=== PATIENT | male | born 1975 | race Caucasian/White ===

== ENCOUNTER 2020-10-20 14:21 | Outpatient (REF) | payer BC, SELFPAY ==
[2020-10-20 15:32] LABS: MANUAL DIFF FLAG NO
[2020-10-20 15:33] LABS: Basophils Absolute Auto 0.1 X10*3/uL (0.0-0.2); Eosinophils Absolute Auto 0.7 X10*3/uL (0.0-0.4); Eosinophils Percent Auto 5.7 % (0-4); Hematocrit 45.4 % (42-52); Hemoglobin 15.3 g/dl (14.0-18.0); Imm Gran Abs Auto 0.04 X10*3/uL (0.00-0.03); Imm Gran Pct Auto 0.3 % (0.0-0.4); Lymphocytes Absolute Auto 4.2 X10*3/uL (1.2-4.9); Lymphocytes Percent Auto 35.3 % (20-40); Mean Corpuscular HGB Conc 33.7 g/dl (31.0-36.0); Mean Corpuscular Hemoglobin 30.9 pg (27.0-33.0); Mean Corpuscular Volume 91.7 fL (80-98); Mean Platelet Volume 11.4 fL (9.4-12.4); Monocytes Absolute Auto 0.7 X10*3/uL (0.1-1.2); Neutrophils Absolute Auto 6.1 X10*3/uL (2.0-8.3); Neutrophils Percent Auto 51.7 % (45-73); Platelet Count 275 X10*3/uL (160-400); Red Blood Count 4.95 X10*6/uL (4.60-5.80); Red Cell Distribution Width 12.7 % (11.0-16.0); Retic HGB Equivalent 34.1 pg (30.0-35.0); Reticulocyte Percent 1.3 % (0.5-1.8); Reticulocytes Absolute 0.065 X10*6/uL (0.026-0.095); White Blood Count 11.8 X10*3/uL (4.8-10.8)
[2020-10-20 16:05] LABS: Alanine Aminotransferase 29 U/L (0-40); Albumin Level 4.3 g/dL (3.5-5.0); Alkaline Phosphatase 71 U/L (39-117); Anion Gap 11 (12-20); Aspartate Amino Transferase 18 U/L (5-37); Bilirubin Total 0.3 mg/dL (0.0-1.0); Blood Urea Nitrogen 11 mg/dL (9-16); Carbon Dioxide 28 mmol/L (22-29); Chloride 104 mmol/L (96-108); Estimated Glomerular Filt Rate > 60; Glucose Random 82 mg/dL (60-115); Iron 113 mcg/dL (45-160); Percent Iron Saturation 29 % (15-50); Potassium 4.4 mmol/l (3.3-5.1); Sodium 139 mmol/L (135-145); Total Iron Binding Capacity 393 mcg/dL (228-428); Total Protein 7.3 g/dL (6.5-8.0); Unsaturated Iron Binding 280 ug/dL
[2020-10-20 16:27] LABS: Ferritin 138 ng/mL (20-250)
[2020-10-20 16:46] LABS: Erythrocyte Sedimentation Rate 4 MM/HR (0-15)
== END 2020-10-20 14:22 | disposition home or self-care (01) ==
LOC: HO.LAB 14:21
PROVIDERS: PCP Internal Medicine Medical Oncology; Visit Provider Internal Medicine Medical Oncology
DX: K62.89 Other specified diseases of anus and rectum (principal); K62.5 Hemorrhage of anus and rectum
CPT/HCPCS: 36415; 80053; 82728; 83540; 85025; 85045; 85652

== ENCOUNTER 2020-10-24 09:17 | Day surgery (SDC) | payer BC, SELFPAY ==
[2020-10-23 08:21] VITALS: BMI 35.4
--- NOTE | 2020-10-23 09:25 | P.CONAN_ITS ---
Documented by User: Corry Alegria 10/23/20 09:27 HPI - Anesthesia Eval Consult details Narrative: 44yo M for Upper Endoscopy and Colonoscopy [facility] Past Medical History Medical History (Updated 10/24/20 @ 10:45 by Silvia Bailey) Asthma Diverticulitis Obesity Snoring Social History Social History (Updated 10/24/20 @ 10:44 by Silvia Bailey) Smoking Status: Current every day smoker Packs Per Day: 1.0 Cigarettes Per Day: 20.0 Smoked in Last 30 Days: Yes Second Hand Smoke Exposure: No Use of substances other than those prescribed or required for medical reasons: Yes Substance Use Type: Marijuana Substance Use Frequency: Daily Last Used Substance: Days (ago) Advance Directives: No Advance Directives Information Provided: No Advance Directives on File: No Meds Allergies Allergy/AdvReac Type Severity Reaction Status Date / Time No Known Drug Allergies Allergy Unknown NONE Verified 10/24/20 10:01 [NO KNOWN DRUG ALLERGIES] Exam Exam Date and Time: October 23, 2020 0925 Height,Weight and Vital Signs: Height 6 ft 1 in Weight 122.016 kg Assessment and Plan Assessment Anesthesia Assessment: Chart Reviewed Documented by User: Silvia Bailey 10/24/20 10:49 [facility] Past Medical History Medical History (Updated 10/24/20 @ 10:45 by Silvia Bailey) Asthma Diverticulitis Obesity Snoring Family History Family history of problems with anesthesia: No Surgical History History of Problems with Anesthesia: No Social History Social History (Updated 10/24/20 @ 10:44 by Silvia Bailey) Smoking Status: Current every day smoker Packs Per Day: 1.0 Cigarettes Per Day: 20.0 Smoked in Last 30 Days: Yes Second Hand Smoke Exposure: No Use of substances other than those prescribed or required for medical reasons: Yes Substance Use Type: Marijuana Substance Use Frequency: Daily Last Used Substance: Days (ago) Advance Directives: No Advance Directives Information Provided: No Advance Directives on File: No Meds Allergies Allergy/AdvReac Type Severity Reaction Status Date / Time No Known Drug Allergies Allergy Unknown NONE Verified 10/24/20 10:01 [NO KNOWN DRUG ALLERGIES] Exam Height,Weight and Vital Signs: Vital Signs Temp Pulse Resp BP Pulse Ox 10/24/20 10:15 96.9 F 66 18 147/98 H 97 Airway Mallampati Class: III TM Dist: >3cm Neck ROM: Full Loose/Missing/Broken Teeth: Yes (Top front) Heart: RRR Lungs: Wheeze top right posterior Assessment and Plan Assessment Anesthesia Assessment: Anesthesia Plan Discussed and Chart Reviewed Final Anesthetic Review NPO: Yes ASA Class: III Final Preanesthetic Review: No Changes in Pt Med Stat, Meds/Allgs Chart Reviewed, Consent Obtained/Reviewed and Anes Risks/Benef Reviewed Patient Risk: Intermediate Procedure Risk: Low Assessment/Block/Sedation in SS: Assess/Block/Sedation-SS Anesthetic Plan Anesthetic Plan: MAC: Disposition: Standard PACU
[2020-10-24 10:15] VITALS: BP 147/98; PULSE 66; RESP 18; TEMP 36.1; O2SAT 97
[2020-10-24] MEDS: Lactated Ringers 1,000 ML 100 ML IVCONT (10:26)
[2020-10-24] MEDS: Albuterol Sulfate (0.083%) 2.5 MG/3 ML VIAL.NEB INHALE (10:51)
[2020-10-24 10:54] VITALS: PULSE 80; O2SAT 98
[2020-10-24 12:11] VITALS: BP 126/68; PULSE 72; RESP 16; TEMP 36.1; O2SAT 97
--- NOTE | 2020-10-24 12:23 | PM.OP ---
Brief Operative Note Date of Service: 10/24/20 Pre-op diagnosis: Melena, GERD, Rectal bleeding and pain. Post-op diagnosis: other (Hiatal hernia/GERD, Erosive duodenitis, gastritis, Hemorrhoids, Anal fissure) Procedure: EGD with biopsies, Colonoscopy to the cecum Surgeon: Scottie Melendez Anesthesia: MAC Estimated blood loss (mL): 3.0 Pathology: other (A. Gastric antrum B. EG Junction at 38cm) Condition: stable Disposition: PACU
[2020-10-24 12:26] VITALS: BP 139/87; PULSE 61; RESP 16; O2SAT 97
[2020-10-24 12:44] VITALS: BP 131/83; PULSE 64; RESP 16; TEMP 36.1; O2SAT 97
--- NOTE | 2020-10-24 12:44 | OP_ITS ---
SURGEON: Scottie Melendez MD INDICATIONS: The patient presents for evaluation of gastroesophageal reflux, reported melena, hematochezia, and rectal pain. PREOPERATIVE DIAGNOSIS: POSTOPERATIVE DIAGNOSIS: PROCEDURE PERFORMED: Esophagogastroduodenoscopy with biopsies, and colonoscopy to the cecum and terminal ileum. ESTIMATED BLOOD LOSS: COMPLICATIONS: ANESTHESIA: Monitored anesthesia care. ASSISTANTS: SPECIMENS: POSTOPERATIVE DIAGNOSES: Erosive duodenitis, gastritis, hiatal hernia, rule out Fabian's esophagus, internal hemorrhoids, probable anal fissure. DESCRIPTION OF PROCEDURE: The patient was placed in the left lateral decubitus position. The Olympus video gastroscope was passed in the posterior oropharynx and upper esophagus under direct vision. The scope was passed slowly to the distal esophagus. The gastroesophageal junction appeared at 38 cm. This area was slightly irregular consistent with reflux and possibly a small area, less than 1 cm, of Fabian's mucosa. There is no evidence of any esophagitis, ulceration, nor mass. The scope was entered into the stomach. There was a small hiatal hernia. The scope was advanced to pylorus and duodenum was cannulated the descending portion. The duodenum including the bulb was carefully inspected. In the duodenal bulb with several erosions, all less than 5 mm in diameter. There was no ulceration nor mass. There was no bleeding. The scope was withdrawn back into the stomach. The gastric antrum had changes consistent with a chronic appearing gastritis with some erythema and edema. There were no erosions or ulcerations. There was good peristalsis. The scope was retroflexed visualizing the proximal stomach carefully, which appeared normal, without any sign of mass or ulceration. The scope was straightened. Biopsies were obtained from the gastric antrum. The scope was withdrawn back in the esophagus. Biopsies were obtained at the EG junction at 38 cm. Proximal to that, the esophageal mucosa appeared normal. The scope was withdrawn from the patient. He was turned around for colonoscopy. The digital rectal exam revealed some external hemorrhoidal tissue as well as what appeared to be a probable fissure.. The Olympus video pediatric colonoscope was entered into the rectum and advanced easily to the cecum. Once in the cecum, I did identify normal-appearing cecal pouch with appendiceal orifice and a normal-appearing ileocecal valve. The terminal ileum was cannulated and appeared normal. The scope was withdrawn back in the colon. The entire cecum and ileocecal valve appeared normal. The scope was slowly withdrawn assessing all mucosal surfaces carefully. Preparation was excellent. I did not visualize any sign of polyps, colitis, nor angiodysplasia. There was an occasional diverticulum in the sigmoid colon. In the rectum, scope was retroflexed visualizing minimal internal hemorrhoids, but no other pathology. The rectal mucosa appeared normal. The scope was straightened out and withdrawn from the patient. He tolerated the procedure well and was returned to the recovery area in stable condition. IMPRESSION: 1. Small hiatal hernia, gastroesophageal reflux, rule out Fabian's esophagus. 2. Erosive duodenitis. 3. Gastritis, rule out Helicobacter pylori. 4. Internal and external hemorrhoids. 5. Probable anal fissure as the cause of his lower GI symptoms. PLAN: The results of the biopsies will be checked. If Helicobacter pylori is present, I would recommend treating that at some point given his previous reported melena and today's findings. He will be started on omeprazole 20 mg daily and I have given him a prescription for that. He was advised to avoid aspirin and NSAIDs. If there is evidence of Fabian's esophagus without dysplasia, I would recommend a repeat upper endoscopy in 3 years. In regard to the colonoscopy findings, I would recommend a repeat colonoscopy in his early 50s given the patient's negative exam and no family history of colorectal cancer. In regard to his presenting symptoms of the anal fissure, he reports that the adpl-ivc-[id number] cream or ointment with lidocaine is working well. I have advised him to use this as needed, but if the symptoms persist and/or return, then we would want to see Dr. Harley for evaluation of this. If things are stable, I will see him in 2 months for followup office visit. MD SUNNI Ospina/RUSSELL / [phone] ANJALI
[2020-10-24] MEDS: Lidocaine 5 % Ointment 35 GM 1 APPL TOPICAL (12:47)
== END 2020-10-24 13:36 | disposition home or self-care (01) ==
PROVIDERS: PCP Internal Medicine Medical Oncology; Visit Provider Internal Medicine
PROC: (CPT 45378; principal; 2020-10-24 10:30)
DX: K62.5 Hemorrhage of anus and rectum (principal); K62.89 Other specified diseases of anus and rectum; Z83.71 Family history of colonic polyps; K57.30 Diverticulosis of large intestine without perforation or abscess without bleeding; K64.8 Other hemorrhoids; K64.4 Residual hemorrhoidal skin tags; K29.50 Unspecified chronic gastritis without bleeding; K29.80 Duodenitis without bleeding; K20.90 Esophagitis, unspecified without bleeding; K21.9 Gastro-esophageal reflux disease without esophagitis; K44.9 Diaphragmatic hernia without obstruction or gangrene; J45.909 Unspecified asthma, uncomplicated; G47.30 Sleep apnea, unspecified; F17.210 Nicotine dependence, cigarettes, uncomplicated; F12.90 Cannabis use, unspecified, uncomplicated; Z79.899 Other long term (current) drug therapy
CPT/HCPCS: 45378; 43239; 88305; 88342; 94640

== ENCOUNTER → 2020-10-27 15:00 | Outpatient (BNVA) | payer BC, SELFPAY | PROVIDERS: PCP Internal Medicine Medical Oncology; Visit Provider Surgery | DX: Z76.89 Persons encountering health services in other specified circumstances (principal) ==

== ENCOUNTER 2020-11-07 12:06 | Day surgery (SDC) | payer BC, SELFPAY ==
[2020-11-06 08:31] VITALS: BMI 36.1
--- NOTE | 2020-11-06 11:02 | HO.ANESPROP2 ---
Documented by User: Corry Alegria 11/06/20 11:04 HPI - Anesthesia Eval Consult details Narrative: 44yo M for Sphincterotomy, EUA, lateral internal PMFSH Past Medical History Medical History Asthma Chronic anal fissure Diverticulitis Obesity Snoring Family History Family History Maternal Aunt History of breast cancer Maternal Uncle History of cancer of unknown primary site Surgical History Surgical History History of elbow surgery Social History Social History Smoking Status: Current every day smoker Packs Per Day: 1.0 Cigarettes Per Day: 20.0 Second Hand Smoke Exposure: No Use of substances other than those prescribed or required for medical reasons: Yes Substance Use Type: Marijuana Advance Directives: No Advance Directives Information Provided: No Advance Directives on File: No Meds Allergies Allergy/AdvReac Type Severity Reaction Status Date / Time No Known Drug Allergies Allergy Unknown NONE Verified 10/27/20 15:07 [NO KNOWN DRUG ALLERGIES] Home Medications Medication Instructions Recorded Confirmed Type albuterol sulfate 90 mcg/actuation 1 puff INHALATION QID 10/27/20 History aerosol inhaler omeprazole 20 mg capsule,delayed 20 mg PO DAILY 10/27/20 History release Exam Exam Date and Time: November 06, 2020 1102 Height,Weight and Vital Signs: Height 6 ft Weight 120.656 kg Pertinent Lab Results Pertinent Lab Results: Laboratory Tests 10/20/20 10/20/20 14:32 14:32 WBC 11.8 H Hgb 15.3 Hct 45.4 Plt Count 275 Sodium 139 Potassium 4.4 Chloride 104 Carbon Dioxide 28 BUN 11 Creatinine 0.85 Assessment and Plan Assessment Anesthesia Assessment: Chart Reviewed Documented by User: Solange Hernandez 11/07/20 14:09 [facility] Past Medical History Medical History Asthma Chronic anal fissure Diverticulitis Obesity Snoring Family History Family History Maternal Aunt History of breast cancer Maternal Uncle History of cancer of unknown primary site Surgical History Surgical History History of elbow surgery Social History Social History Smoking Status: Current every day smoker Packs Per Day: 1.0 Cigarettes Per Day: 20.0 Second Hand Smoke Exposure: No Use of substances other than those prescribed or required for medical reasons: Yes Substance Use Type: Marijuana Advance Directives: No Advance Directives Information Provided: No Advance Directives on File: No Meds Allergies Allergy/AdvReac Type Severity Reaction Status Date / Time No Known Drug Allergies Allergy Unknown NONE Verified 10/27/20 15:07 [NO KNOWN DRUG ALLERGIES] Home Medications Medication Instructions Recorded Confirmed Type albuterol sulfate 90 mcg/actuation 1 puff INHALATION QID 10/27/20 History aerosol inhaler omeprazole 20 mg capsule,delayed 20 mg PO DAILY 10/27/20 History release Exam Airway Mallampati Class: II TM Dist: >3cm Neck ROM: Full Loose/Missing/Broken Teeth: Yes and Upper Heart: RRR Lungs: CTA
[2020-11-07] VITALS (15 sets, daily range): BP systolic 111–153; BP diastolic 65–92; PULSE 58–71; RESP 16–20; TEMP 36.1–36.6; O2SAT 96–100
--- NOTE | 2020-11-07 10:59 | MHC.SHP ---
Pre-Procedural Eval Section B Chief Complaint: chronic anal fissure Allergies: Allergies Allergy/AdvReac Type Severity Reaction Status Date / Time No Known Drug Allergies Allergy Unknown NONE Verified 10/27/20 15:07 [NO KNOWN DRUG ALLERGIES] Plan I have reviewed the history and physical and performed a pertinent physical examination on my patient. No changes have occurred unless specified.
[2020-11-07] MEDS: Lactated Ringers 1,000 ML 100 ML IVCONT (12:40)
--- NOTE | 2020-11-07 14:36 | PM.OP ---
Brief Operative Note Date of Service: 11/07/20 Pre-op diagnosis: anal fissure Post-op diagnosis: same Procedure: EUA, lateral int sphincterotomy Surgeon: Price Harley MD Anesthesia: GETA Estimated blood loss (mL): 5 Pathology: none sent Condition: stable Disposition: PACU
[2020-11-07] MEDS: Acetaminophen 325 MG TABLET 650 MG PO (14:54)
[2020-11-07] MEDS: oxyCODONE HCl Immed Release 5 MG TABLET 10 MG PO (14:54)
[2020-11-07] MEDS: fentaNYL citrate/PF 100 MCG/2 ML VIAL 50 MCG IVPUSH ×2 (14:55→15:00)
[2020-11-07] MEDS: fentaNYL citrate/PF 100 MCG/2 ML VIAL 25 MCG IVPUSH ×3 (15:06→15:21)
[2020-11-07] MEDS: Albuterol Sulfate 90 MCG 8 GM INHALER 2 PUFF INHALE (15:27)
--- NOTE | 2020-11-07 15:33 | OP_ITS ---
SURGEON: Price Harley MD INDICATIONS: The patient is a 44-year-old male, who was seen in the office because of an anal fissure. He describes severe anal pain, especially with bowel movements and passage of stool. The patient occasionally sees blood per rectum as well. Examination which showed an anal fissure in the posterior midline. He also had a colonoscopy by Dr. Melendez about 3 weeks ago showing the same issue. In view of severe pain, I told him that we can proceed with exam under anesthesia and lateral internal sphincterotomy in the operating room. I explained the techniques of this procedure. I reviewed the risks including but not limited to bleeding and infections, as well as benefits and alternatives, and he had given consent. PREOPERATIVE DIAGNOSIS: Anal fissure, chronic. POSTOPERATIVE DIAGNOSIS: Anal fissure, chronic. PROCEDURE PERFORMED: Exam under anesthesia, left lateral internal sphincterotomy. ESTIMATED BLOOD LOSS: COMPLICATIONS: ANESTHESIA: ASSISTANTS: SPECIMENS: DESCRIPTION OF PROCEDURE: He was brought to the operating room, placed in prone ana cristina-knife position under general anesthesia via endotracheal tube. The buttocks were retracted with wide tape laterally. The perianal was prepped in the usual sterile fashion. A surgical time-out was done. The patient received Cefotan 2 g IV preoperatively. The anal verge was retracted on both sides. An anal fissure in the posterior midline which appeared to be deep and wide was seen. The patient also had some bulky external hemorrhoids, both on the left and right side. I inserted the Jarrett-Selene retractor and I examined the anal canal circumferentially. I did not see any other lesions. Again, the posterior midline fissure was noted distal to dentate line. He did have mixed internal and external hemorrhoids, which were very bulky in both the left and right side. I proceeded to palpate for the intersphincteric groove on the left side. I made a short incision using blade #15 on the skin overlying this. I avoided the external hemorrhoid on this area and pushed it away while I dissected bluntly to identify the internal sphincter. The intersphincteric plane was clearly identified. I used the hemostat to isolate the internal sphincter fibers and divided this fibers using electrocautery all the way to the level of the dentate line. We then proceeded to close the incision with a running chromic 3-0 stitch. I infiltrated the perianal with Marcaine 0.5% for postop analgesia. I applied a Gel-Foam packing in the anal canal to achieve better hemostasis. The procedure was completed. The patient tolerated the procedure well. There were no complications noted. Initial and final counts of sponges and instruments were correct. Estimated blood loss was about 10 mL. The patient was extubated without difficulty and transferred to recovery room with stable vital signs. MD JOSE RAMON Urban/RUSSELL / [id number]
[2020-11-07] MEDS: ondansetron HCL 4 MG/2 ML VIAL IVPUSH (15:40)
--- NOTE | 2020-11-07 16:11 | HO.POSTANES ---
Post Anesthesia Evaluation Post Anesthesia Evaluation Vital Signs: Vital Signs Temp Pulse Resp BP Pulse Ox 11/07/20 15:44 97.4 F 71 16 128/73 99 11/07/20 15:33 68 16 128/89 97 11/07/20 15:26 58 16 128/92 H 99 11/07/20 15:21 16 11/07/20 15:20 58 16 135/82 99 11/07/20 15:15 58 16 117/86 99 11/07/20 15:10 61 16 124/77 99 11/07/20 15:06 16 11/07/20 15:05 62 16 133/82 96 11/07/20 15:00 16 11/07/20 14:55 62 16 117/85 99 11/07/20 14:51 65 16 148/85 H 99 11/07/20 14:46 64 20 144/89 H 100 11/07/20 14:41 97.8 F 66 20 153/92 H 100 11/07/20 12:31 97 F 68 18 111/65 98 Anesthesia: General Mental Status: Awake Pain Control: Satisfactory Nausea/Vomiting: None Hydration: Adequate Anesthesia-Related Issues: No Anes. Related Issues
== END 2020-11-07 16:06 | disposition home or self-care (01) ==
PROVIDERS: PCP Internal Medicine Medical Oncology; Visit Provider Surgery
PROC: (CPT 46080; principal; 2020-11-07 15:00)
DX: K60.1 Chronic anal fissure (principal); K62.89 Other specified diseases of anus and rectum; K21.9 Gastro-esophageal reflux disease without esophagitis; J45.909 Unspecified asthma, uncomplicated; K57.30 Diverticulosis of large intestine without perforation or abscess without bleeding; R06.83 Snoring; E66.9 Obesity, unspecified; Z68.36 Body mass index [BMI] 36.0-36.9, adult; F17.210 Nicotine dependence, cigarettes, uncomplicated
CPT/HCPCS: 46080; J1885; J2250; J2405; J3010

== ENCOUNTER → 2020-11-24 15:53 | Outpatient (BNVA) | payer BC, SELFPAY | PROVIDERS: PCP Internal Medicine Medical Oncology; Visit Provider Surgery ==

== ENCOUNTER 2020-12-02 11:57 | Outpatient (REF) | payer BC, SELFPAY | END 2020-12-02 11:58 | disposition home or self-care (01) | LOC: HO.LAB 11:57 | PROVIDERS: Visit Provider Internal Medicine | DX: Z20.822 Contact with and (suspected) exposure to COVID-19 (principal) | CPT/HCPCS: 36415; C9803; U0003; U0005 ==

== ENCOUNTER 2022-09-15 11:12 | Outpatient (REF) | payer MEDICAID, SELFPAY ==
[2022-09-15 13:36] LABS: MANUAL DIFF FLAG NO
[2022-09-15 13:38] LABS: Basophils Absolute Auto 0.1 X10*3/uL (0.0-0.2); Basophils Percent Auto 1.2 % (0-2); Eosinophils Absolute Auto 0.6 X10*3/uL (0.0-0.4); Eosinophils Percent Auto 5.6 % (0-4); Hematocrit 45.6 % (42.0-52.0); Imm Gran Abs Auto 0.04 X10*3/uL (0.00-0.03); Imm Gran Pct Auto 0.4 % (0.0-0.4); Lymphocytes Absolute Auto 3.6 X10*3/uL (1.2-4.9); Lymphocytes Percent Auto 33.8 % (20-40); Mean Corpuscular HGB Conc 32.9 g/dl (31.0-36.0); Mean Corpuscular Hemoglobin 30.8 pg (27.0-33.0); Mean Corpuscular Volume 93.6 fL (80.0-98.0); Mean Platelet Volume 12.3 fL (9.4-12.4); Monocytes Absolute Auto 0.8 X10*3/uL (0.1-1.2); Monocytes Percent Auto 7.7 % (2-11); Neutrophils Absolute Auto 5.5 x10*3/uL (2.0-8.3); Neutrophils Percent Auto 51.3 % (45-73); Platelet Count 316 X10*3/uL (160-400); Red Blood Count 4.87 X10*6/uL (4.60-5.80); Red Cell Distribution Width 12.5 % (11.0-16.0); White Blood Count 10.8 X10*3/uL (4.8-10.8)
[2022-09-15 14:04] LABS: Alanine Aminotransferase 45 U/L (0-40); Albumin Level 3.7 g/dL (3.5-5.0); Alkaline Phosphatase 75 U/L (39-117); Amylase 41 U/L (28-100); Anion Gap 12 (12-20); Aspartate Amino Transferase 24 U/L (5-37); Bilirubin Total 0.2 mg/dL (0.0-1.0); Blood Urea Nitrogen 10 mg/dL (9-16); Calcium 8.9 mg/dL (8.4-10.2); Carbon Dioxide 27 mmol/L (22-29); Chloride 103 mmol/L (96-108); Estimated Glomerular Filt Rate > 60; Glucose Random 136 mg/dL (60-115); Lipase 32 U/L (8-78); Potassium 4.5 mmol/L (3.3-5.1); Sodium 137 mmol/L (135-145); Total Protein 6.7 g/dL (6.5-8.0)
== END 2022-09-15 11:13 | disposition home or self-care (01) ==
LOC: HO.10HDL 11:12
PROVIDERS: Visit Provider Internal Medicine Medical Oncology
DX: R10.9 Unspecified abdominal pain (principal); K80.20 Calculus of gallbladder without cholecystitis without obstruction; K85.90 Acute pancreatitis without necrosis or infection, unspecified
CPT/HCPCS: 36415; 80053; 82150; 83690; 85025

== ENCOUNTER 2022-09-16 14:35 | Outpatient (REF) | payer BC, SELFPAY ==
--- NOTE | ~2022-09-16 | US_ITS ---
EXAMINATION: US ABDOMEN COMPLETE CLINICAL INFORMATION: Abdominal pain. COMPARISON: Ultrasound abdomen 09/16/2006, CT abdomen and pelvis 03/31/2020 TECHNIQUE: Real-time imaging of the abdominal viscera. FINDINGS: PANCREAS: Normal. ABDOMINAL AORTA: The proximal, mid, and distal segments are normal in caliber. INFERIOR VENA CAVA: Visualized portions are normal. LIVER: The liver is enlarged with diffuse increased echogenicity. There is focal fatty sparing adjacent to the gallbladder. Right hepatic lobe measures 21.6 cm in length and left lobe measures 13.7 cm. The liver contour is normal. No focal hepatic lesion. There is no intrahepatic biliary duct dilatation seen. GALLBLADDER: The gallbladder is physiologically distended without evidence of stones, sludge, wall thickening or pericholecystic fluid. There are at least 5 nonmobile echogenic lesions along the inner gallbladder wall suggestive of polyps. The largest polyp measures 0.5 x 0.3 x 0.5 cm. COMMON BILE DUCT: Normal in caliber measuring 0.8 cm in diameter. RIGHT KIDNEY: No hydronephrosis or renal calculi. There is anechoic cyst in midpole laterally measuring 0.9 x 1.2 x 0.8 cm. The kidney measures 11.9 cm in maximum dimension. LEFT KIDNEY: Normal. No hydronephrosis. No renal calculi or focal parenchymal lesions. The kidney measures 12.2 cm in maximum dimension. SPLEEN: There is anechoic cyst medial to the splenic hilum measuring 0.7 x 0.9 x 0.6 cm. The spleen measures 10.5 cm in maximum dimension. FREE FLUID: None. US/US abdomen complete IMPRESSION: 1. Diffuse fatty infiltration of liver with focal fatty sparing adjacent to gallbladder. 2. At least 5 gallbladder polyps. No echogenic stones or wall thickening. 3. Right renal cyst and a small cyst in the splenic hilum. 4. Rest of the abdominal ultrasound is unremarkable.
== END 2022-09-16 14:36 | disposition home or self-care (01) ==
LOC: HO.US 14:35
PROVIDERS: PCP Internal Medicine Medical Oncology; Visit Provider Internal Medicine Medical Oncology
DX: R10.9 Unspecified abdominal pain (principal); K80.20 Calculus of gallbladder without cholecystitis without obstruction
CPT/HCPCS: 76700

== ENCOUNTER → 2023-03-16 12:53 | Outpatient (BNVA) | payer MEDICAID, SELFPAY | PROVIDERS: PCP Internal Medicine Medical Oncology; Visit Provider Internal Medicine | DX: K85.90 Acute pancreatitis without necrosis or infection, unspecified (principal); K86.2 Cyst of pancreas | CPT/HCPCS: 99202 ==

== ENCOUNTER 2023-04-29 09:33 | Outpatient (AMB) | payer MEDICAID, SELFPAY ==
--- NOTE | 2023-04-29 09:36 | A.OFFVIS_ITS ---
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 Patient reports numbness in right hand started about 10-12 years ago with his right hand being the worse. States frequently drops items with use of right hand. He has numbness in all his fingers and swelling at his CMC that makes it difficult with gripping items. His left hand is starting to get worse. Left hand mild numbness in all his fingertips and a tightness at his CMC. EMG done ~2007 at [facility]. Hx of laceration injury to left hand as a child. 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 He says his numbness began ~12 years ago in his right hand, and has been worsening over time. He says he had a NCS performed in ~2007 at [facility], but a copy of this report was not available. He complains today of numbness in all his fingers bilaterally. He says his right hand has dense numbness in all digits. His left hand has intermittent numbness several times a week. He also complains of hand weakness and difficultly g ripping or holding objects. He has dropped cooking utensils in the past He says he was bitten by his [id number] in ~2008 in his right elbow. 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 He currently stays home with his daughter. [facility] Medical History Asthma Chronic anal fissure Diverticulitis Obesity Snoring Surgical History (Updated 04/29/23 @ 09:39 by HUNTER Talamantes) History of elbow surgery Hx of colonoscopy Hx of endoscopy Family History Maternal Aunt History of breast cancer Maternal Uncle History of cancer of unknown primary site Social History (Updated 04/29/23 @ 09:44 by HUNTER Talamantes) Patient Tobacco Use Status: Former Tobacco user Cigarette Packs Per Day: 1.0 Cigarettes Per Day: 20.0 Second Hand Smoke Exposure: No Substance Use Type: Marijuana Current occupational status: unemployed Current occupation: right hand dominant Review of Systems Const All systems reviewed & are unremarkable except as noted in HPI and below Physical Exam Vital Signs: BMI result Body Mass Index 36.9 Const General: cooperative, healthy appearing and no acute distress Orientation/consciousness: patient oriented x3 HEENT Head: Yes normocephalic and Yes atraumatic Eyes EOM: EOMs intact bilaterally Resp Effort & Inspection: normal respiratory effort and able to speak in complete sentences Cardio Jugular venous distension: no JVD Skin General skin exam: turgor normal Rashes: no rashes Neuro General: patient oriented x3 Extrem Other: Evaluation of Bilateral Upper Extremity: The patient is alert, oriented, and in no acute distress Neuro: Dense numbness in the median nerve distribution of the right hand. He is unsure if he has numbness in the small finger of the right hand Normal sensation to the tips of all digits of the left hand No thenar or intrinsic wasting Good APB muscle belly firing and good finger cross Vascular: Cap refill brisk ROM: He can make a fist and extend all his digits Skin: No lacerations or abrasions. General: No Ecchymosis. No Erythema or evidence of infection. Knuckle pads on the PIP joint and middle finger MCP joint of his right hand Psych Appearance: grossly normal Affect: normal affect Attitude: cooperative Assessment & Plan Assessment & Plan (1) Carpal tunnel syndrome of right wrist: Code(s): G56.01 - Carpal tunnel syndrome, right upper limb (2) Numbness and tingling in left hand: Code(s): R20.0 - Anesthesia of skin; R20.2 - Paresthesia of skin Plan Assessment & Plan: 1. Right Carpal tunnel syndrome, based on history and PE With dense numbness for ~4 weeks now No thenar wasting I educated him about this condition I discussed operative and non-operative treatment options The patient would like to proceed with surgery He is unsure if he has numbness in the ulnar nerve distribution at this time The risks and benefits of operative treatment were discussed with the patient and the patient wishes to proceed with surgery. These risks include, but are not limited to risk of damage to blood vessels, nerves, tendons, infection, recurrence, incomplete relief of preoperative symptoms, persistent pain, possible need for further surgery and the risks associated with regional blocks and anesthesia. The plan is to take the patient to the operating room sometime in the next few weeks for the following procedures: 1. Right Carpal tunnel release, under local All of the preoperative paperwork including the consent was filled out today. All the patient's questions were answered. The patient understands that they will be contacted by our surgery technician soon to schedule this procedure He denies Diabetes, blood thinners, asthma, heart, lung, kidney issues 2. Left hand numbness In the median nerve distribution Symptoms intermittent and occasional throughout the week I ordered a NCS of his bilateral upper extremities to assess for cervical radiculopathy vs peripheral neuropathy He will follow up when completed for review Scribed for Niya Wolf MD by Jean Rey, medical office technician, on 04/29/23 at 10:10 AM, EST. Orders: Orders NE nerve conduction velocity Today R20.0 - Anesthesia of skin, R20.2 - Paresthesia of skin Coding Level of Care Code New Pt Level 4 (54855) Diagnoses Carpal tunnel syndrome of right wrist G56.01 Numbness and tingling in left hand R20.0; R20.2
[2023-04-29 09:50] VITALS: BMI 36.9
== END 2023-04-29 10:49 | disposition home or self-care (01) ==
PROVIDERS: PCP Internal Medicine Medical Oncology; Visit Provider Orthopaedic Surgery
DX: G56.01 Carpal tunnel syndrome, right upper limb (principal); R20.0 Anesthesia of skin; R20.2 Paresthesia of skin
CPT/HCPCS: 99204

== ENCOUNTER → 2023-04-29 09:33 | Outpatient (BNVA) | payer MEDICAID, SELFPAY | PROVIDERS: PCP Internal Medicine Medical Oncology; Visit Provider Orthopaedic Surgery | DX: G56.01 Carpal tunnel syndrome, right upper limb (principal); R20.0 Anesthesia of skin; R20.2 Paresthesia of skin | CPT/HCPCS: 99202 ==

== ENCOUNTER 2023-05-11 11:53 | Outpatient (REF) | payer MEDICAID, SELFPAY ==
[2023-05-11 12:13] LABS: MANUAL DIFF FLAG NO
[2023-05-11 12:24] LABS: Basophils Absolute Auto 0.1 X10*3/uL (0.0-0.2); Basophils Percent Auto 1.1 % (0-2); Eosinophils Absolute Auto 0.9 X10*3/uL (0.0-0.4); Eosinophils Percent Auto 7.8 % (0-4); Hemoglobin 15.6 g/dl (14.0-18.0); Imm Gran Abs Auto 0.05 X10*3/uL (0.00-0.03); Imm Gran Pct Auto 0.4 % (0.0-0.4); Lymphocytes Absolute Auto 4.3 X10*3/uL (1.2-4.9); Lymphocytes Percent Auto 37.5 % (20-40); Mean Corpuscular HGB Conc 33.9 g/dl (31.0-36.0); Mean Corpuscular Hemoglobin 31.1 pg (27.0-33.0); Mean Corpuscular Volume 91.8 fL (80.0-98.0); Mean Platelet Volume 11.2 fL (9.4-12.4); Monocytes Absolute Auto 0.7 X10*3/uL (0.1-1.2); Monocytes Percent Auto 6.4 % (2-11); Neutrophils Absolute Auto 5.4 x10*3/uL (2.0-8.3); Neutrophils Percent Auto 46.8 % (45-73); Platelet Count 272 X10*3/uL (160-400); Red Blood Count 5.01 X10*6/uL (4.60-5.80); Red Cell Distribution Width 12.6 % (11.0-16.0); White Blood Count 11.5 X10*3/uL (4.8-10.8)
[2023-05-11 12:53] LABS: Cholesterol 220 mg/dL; HDL Cholesterol 30 mg/dL; LDL Cholesterol Calculated 139 mg/dl; Triglycerides 255 mg/dL
[2023-05-11 13:05] LABS: Alanine Aminotransferase 56 U/L (0-40); Alkaline Phosphatase 79 U/L (39-117); Anion Gap 13 (12-20); Aspartate Amino Transferase 37 U/L (5-37); Bilirubin Total 0.5 mg/dL (0.0-1.0); Blood Urea Nitrogen 13 mg/dL (9-16); Calcium 9.1 mg/dL (8.4-10.2); Carbon Dioxide 26 mmol/L (22-29); Chloride 106 mmol/L (96-108); Estimated Glomerular Filt Rate > 60; Glucose Random 102 mg/dL (60-115); Potassium 4.6 mmol/L (3.3-5.1); Sodium 140 mmol/L (135-145); Total Protein 7.5 g/dL (6.5-8.0)
[2023-05-11 13:06] LABS: Prostate Specific Antigen 0.35 ng/mL (<0.05-4.0)
[2023-05-11 13:22] LABS: Free T4 (Free Thyroxine) 0.76 ng/dL (0.71-1.85)
[2023-05-11 13:59] LABS: Reflex LDLD? No
== END 2023-05-11 11:54 | disposition home or self-care (01) ==
LOC: HO.LAB 11:53
PROVIDERS: PCP Internal Medicine Medical Oncology; Visit Provider Internal Medicine Medical Oncology
DX: Z00.00 Encounter for general adult medical examination without abnormal findings (principal); Z12.5 Encounter for screening for malignant neoplasm of prostate; E78.2 Mixed hyperlipidemia; E66.01 Morbid (severe) obesity due to excess calories; Z87.09 Personal history of other diseases of the respiratory system; Z86.59 Personal history of other mental and behavioral disorders
CPT/HCPCS: 36415; 80053; 80061; 84153; 84439; 84443; 85025

== ENCOUNTER 2023-05-19 08:55 | Outpatient (REF) | payer MEDICAID, SELFPAY ==
--- NOTE | ~2023-05-19 | XR_ITS ---
EXAMINATION: XR FEMUR, RIGHT CLINICAL INFORMATION: Right thigh foreign body, pre-MRI screening COMPARISON: None available. TECHNIQUE: 4 views of the right femur FINDINGS: No radiopaque foreign body visualized in the right thigh. No acute visible fracture or dislocation. Degenerative changes of the right femoral acetabular joints and knee. Small knee joint effusion. XR/XR pre mri screening IMPRESSION: 1. No radiopaque foreign body visualized in the right thigh. 2. No acute visible fracture or dislocation. 3. Degenerative changes of the right femoral acetabular joints and knee. 4. Small knee joint effusion.
--- NOTE | ~2023-05-19 | MR_ITS ---
EXAMINATION: MR ABDOMEN WITHOUT AND WITH CONTRAST CLINICAL INFORMATION: Pancreatic cyst COMPARISON: abdominal ultrasound 09/16/2022, CT abdomen pelvis 03/31/2020 TECHNIQUE: MRI of the abdomen before and after the IV administration of 10 mL of Gadavist was obtained using routine sequences. Heavily T2 weighted MRCP sequences were also obtained. FINDINGS: LUNG BASES: The visualized lung bases are unremarkable. KIDNEYS AND URETERS: Bosniak 1 benign-appearing bilateral renal cysts, no follow-up imaging recommended. GALLBLADDER: Unremarkable. LIVER AND BILIARY TREE: Liver is enlarged measuring 22.4 cm in span. Loss of signal on opposed phase imaging compatible with hepatic steatosis. No intra or extrahepatic biliary duct dilatation or intraluminal filling defect to suggest choledocholithiasis. PANCREAS: No cystic or solid pancreatic mass. No pancreatic duct dilatation. No variant pancreatic ductal anatomy. SPLEEN: Unremarkable ADRENAL GLANDS: Unremarkable GASTROINTESTINAL TRACT: Unremarkable. LYMPH NODES: No lymphadenopathy. VASCULAR: Unremarkable ABDOMINAL WALL: Unremarkable. OSSEOUS STRUCTURES: Unremarkable. MR/MR abdomen wo/w con IMPRESSION: 1. No cystic or solid pancreatic mass. 2. Hepatomegaly and hepatic steatosis.
== END 2023-05-19 08:56 | disposition home or self-care (01) ==
LOC: HO.MRI 08:55
PROVIDERS: PCP Internal Medicine Medical Oncology; Visit Provider Internal Medicine
DX: K86.2 Cyst of pancreas (principal)
CPT/HCPCS: 74183; A9585

== ENCOUNTER 2023-06-08 09:36 | Outpatient (REF) | payer MEDICAID, SELFPAY ==
--- NOTE | 2023-06-08 09:38 | EMG_ITS ---
Please see scanned EMG / Nerve Conduction Report. MTDD
== END 2023-06-08 09:37 | disposition home or self-care (01) ==
LOC: HO.NEURO 09:36
PROVIDERS: PCP Internal Medicine Medical Oncology; Visit Provider Orthopaedic Surgery
DX: R20.0 Anesthesia of skin (principal); R20.2 Paresthesia of skin
CPT/HCPCS: 95885; 95913

== ENCOUNTER 2023-09-06 13:36 | Outpatient (AMB) | payer MEDICAID, SELFPAY ==
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
[2023-09-06 14:06] VITALS: BMI 36.9
== END 2023-09-06 14:23 | disposition home or self-care (01) ==
PROVIDERS: PCP Internal Medicine Medical Oncology; Visit Provider Orthopaedic Surgery
DX: G56.03 Carpal tunnel syndrome, bilateral upper limbs (principal)
CPT/HCPCS: 99214

== ENCOUNTER → 2023-09-06 13:36 | Outpatient (BNVA) | payer MEDICAID, SELFPAY | PROVIDERS: PCP Internal Medicine Medical Oncology; Visit Provider Orthopaedic Surgery | DX: G56.03 Carpal tunnel syndrome, bilateral upper limbs (principal); R20.0 Anesthesia of skin | CPT/HCPCS: 99212 ==

== ENCOUNTER 2024-02-06 10:45 | Day surgery (SDC) | payer MEDICAID, SELFPAY ==
[2024-02-06 11:00] VITALS: BP 134/93; PULSE 73; RESP 20; TEMP 36.4; O2SAT 97; BMI 36.8
--- NOTE | 2024-02-06 12:04 | MHC.SHP ---
Pre-Procedural Eval Section A - 24 Hr Update-Section A only Date of Service: 02/06/24 The patient is an INPATIENT: No Changes since office visit: No Cold of Flu in the past 2 weeks, No New Medical Problems, No Changes in Medication and No Patient answered all questions The patient has been examined within 24 hours of the surgical procedure. The History & Physical has been completed within 30 days and I have reviewed it.: Yes Section B - Complete if H&P > 30 days Chief Complaint: Carpal tunnel syndrome, right upper limb Allergies: Allergies Allergy/AdvReac Type Severity Reaction Status Date / Time No Known Drug Allergies Allergy Unknown NONE Verified 09/06/23 14:07 [NO KNOWN DRUG ALLERGIES] Exam Exam Comment: Right carpal tunnel syndrome Plan Diagnosis/Plan: Unchanged I have reviewed the history and physical and performed a pertinent physical examination on my patient. No changes have occurred unless specified. Time Spent With Patient Time: Total time managing care of this patient today ____ minutes.
--- NOTE | 2024-02-06 12:07 | W.PM.OPN ---
Operative Note Operative Note Date of Service: 02/06/24 Narrative: Preop diagnosis: 1. Right Carpal tunnel syndrome Postop diagnosis: same Procedure: 1. Right Carpal tunnel release Surgeon: Niya Wolf MD Anesthesia: local block using 1% lidocaine with epinephrine Findings: Thickened transverse carpal ligament. EBL: Less than 5 mL Specimens: None Complications: None Disposition: Brought to recovery room in stable condition Plan: Follow-up for 10-14 days for wound check and suture removal Indications: The patient is 48 years old, with right carpal tunnel syndrome that has been unresponsive to nonoperative management. The risks and benefits of operative treatment including but not limited to risk of damage to blood vessels, nerves, tendons, infection, persistent pain, persistent symptoms, or possible need for additional surgery were discussed with the patient and the patient wishes to proceed with surgery. Procedure: Once consent was obtained a local block was performed using a combination of 1% lidocaine with epinephrine. The patient was then brought back to the operating suite and placed on the operative table in supine position. The right upper extremity was prepped and draped in a standard surgical fashion. Once assured that we had a good block, a 2.0 cm longitudinal incision was made centered over the carpal tunnel. The incision was made through the skin to the subcutaneous tissues using a #15 blade. Dissection was made down to the level of the transverse carpal ligament with care being taken to protect the palmar cutaneous nerve. Once the transverse carpal ligament was clearly visualized, a longitudinal incision was made in the transverse carpal ligament 1st using a #15 blade, then using tenotomy scissors under direct visualization. Care was taken to look for and protect the motor branch of the median nerve when seen in this area. Once satisfied with our carpal tunnel release the wound was copiously irrigated with normal saline and hemostasis was obtained with a brief period of local pressure. The skin edges were reapproximated with some 5.0 nylon suture material and a sterile dressing was applied. The patient appears to have tolerated the procedure well and with no complications. All digits were well vascularized at the conclusion of the case.
[2024-02-06 13:52] VITALS: BP 150/86; PULSE 70; RESP 16; O2SAT 97
== END 2024-02-06 13:55 | disposition home or self-care (01) ==
PROVIDERS: PCP Internal Medicine Medical Oncology; Visit Provider Orthopaedic Surgery
PROC: (CPT 64721; principal; 2024-02-06 13:10)
DX: G56.01 Carpal tunnel syndrome, right upper limb (principal); R06.83 Snoring; R20.0 Anesthesia of skin; R20.2 Paresthesia of skin; Z87.19 Personal history of other diseases of the digestive system; J45.909 Unspecified asthma, uncomplicated; E66.9 Obesity, unspecified; Z68.36 Body mass index [BMI] 36.0-36.9, adult; Z87.891 Personal history of nicotine dependence
CPT/HCPCS: 64721; J0171

== ENCOUNTER → 2024-02-06 10:45 | Outpatient (BNV) | payer MEDICAID, SELFPAY | PROVIDERS: PCP Internal Medicine Medical Oncology; Visit Provider Orthopaedic Surgery | DX: G56.01 Carpal tunnel syndrome, right upper limb (principal) | CPT/HCPCS: 64721 ==

== ENCOUNTER 2024-02-21 13:33 | Outpatient (AMB) | payer MEDICAID, SELFPAY ==
--- NOTE | 2024-02-21 13:38 | A.OFFVIS_ITS ---
Vital Signs 02/21/24 13:59 Height 6 ft 2 in Weight 287 lb BMI 36.8 Intake Visit Reasons: PO-Rt CTR 02/06/24 AR Intake Note: Arnav 48 yr old male presents today for his PO visit for his right hand CTR 02/06/24 AR. States his CTS have improved and is doing well. Reports he has good sensation. States he has returned to work and is using gloves for protection, he also mentioned he has been lifting his 9 month old daughter mainly with his forearm. Sutures removed and steri strips applied. Allergies No Known Drug Allergies [NO KNOWN DRUG ALLERGIES] Allergy (Unknown, Verified 02/21/24 13:58) NONE HPI HPI PO-Rt CTR 02/06/24 AR: Details: Arnav is a 48 year old right hand dominant man who returns S/P right carpal tunnel release, DOS: 02/06/24. He says he is doing well overall/. His right hand sensation is improved and now normal, which he is happy about. He had good improvement in his night time symptoms He says he has been carrying his daughter at home, primarily using his forearms to lift her. 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 Review of Systems Const All systems reviewed & are unremarkable except as noted in HPI and below Physical Exam Vital Signs: BMI result Body Mass Index 36.8 Const General: no acute distress and alert Orientation/consciousness: patient oriented x3 Neuro General: patient oriented x3 Extrem Other: The patient was alert oriented and in no acute distress The incision is healing well with no erythema drainage or evidence of infection. Sutures removed and Steri-Strips applied He can make a fist and extend all his digits Sensation is normal to the tips of all digits of the right hand Normal sensation to the tips of all digits of the left hand Cap refill is brisk Nerve Conduction Study: Moderate-severe right carpal tunnel syndrome Mild left carpal tunnel syndrome Dr. Sawyer 06/08/23 Psych Appearance: grossly normal Affect: normal affect Attitude: cooperative Assessment & Plan Assessment & Plan (1) Carpal tunnel syndrome of right wrist: Code(s): G56.01 - Carpal tunnel syndrome, right upper limb Category: Medical (2) Carpal tunnel syndrome of left wrist: Code(s): G56.02 - Carpal tunnel syndrome, left upper limb Category: Medical Plan Assessment & Plan: 1. Right Carpal tunnel syndrome, S/P release Pre-operatively with dense numbness, no thenar wasting Now with normal sensation & good resolution of his nighttime symptoms The patient appears to be doing well post-operatively I educated him about the post-operative course I discussed activity modifications, he is to lift nothing heavier than a cellphone for the next two weeks He will perform gentle ROM exercises at home He should avoid any underwater activities for the next 5 days He should gently massage about the incision site to reduce the risk of hypersensitivity He is happy with the results of his surgery. He will follow up prn 2. Left carpal tunnel syndrome, mild No complaints today He can follow up to discuss treatment options at a later date Scribed for Niya Wolf MD by juwan Booker, on 02/21/24 at 1:55 PM, EST. Scribe Plan - Not visible on output: Scribed for Niya Wolf MD by juwan Booker, on [ ] at [ ], EST. Coding Level of Care Code Global (55985) Diagnoses Carpal tunnel syndrome of right wrist G56.01 Carpal tunnel syndrome of left wrist G56.02
[2024-02-21 13:59] VITALS: BMI 36.8
== END 2024-02-21 14:03 | disposition home or self-care (01) ==
PROVIDERS: PCP Internal Medicine Medical Oncology; Visit Provider Orthopaedic Surgery
DX: G56.03 Carpal tunnel syndrome, bilateral upper limbs (principal)
CPT/HCPCS: 99024

== ENCOUNTER → 2024-02-21 13:33 | Outpatient (BNVA) | payer MEDICAID, SELFPAY | PROVIDERS: PCP Internal Medicine Medical Oncology; Visit Provider Orthopaedic Surgery | DX: Z09 Encounter for follow-up examination after completed treatment for conditions other than malignant neoplasm (principal); Z86.69 Personal history of other diseases of the nervous system and sense organs | CPT/HCPCS: 99212 ==

== ENCOUNTER 2024-07-11 14:19 | Emergency (ER) | payer MEDICAID, SELFPAY ==
--- NOTE | ~2024-07-11 | CT_ITS ---
EXAMINATION: CT ABDOMEN AND PELVIS WITHOUT CONTRAST CLINICAL INFORMATION: Left lower quadrant pain COMPARISON: 05/19/2023 TECHNIQUE: Multidetector volumetric imaging was performed from the superior aspect of the liver through the pubic symphysis. Sagittal and coronal reformatted images were obtained on the technologist's workstation. This CT examination was performed using dose optimization techniques as appropriate, variously including the following: *Automated exposure control *Adjustment of mA and/or kV according to patient size (this includes techniques or standardized protocols for targeted exams where dose is matched to indication/reason for exam; i.e. extremities or head) *Use of iterative reconstruction technique DLP: 829 mGy-cm FINDINGS: LUNG BASES: The visualized lung bases are unremarkable. LIVER, GALLBLADDER, AND BILIARY TREE: Changes of diffuse hepatic steatosis. No definite discrete lesion on this nonenhanced study. No gross biliary ductal dilatation. The gallbladder is unremarkable with no evidence of radiopaque gallstones, gallbladder wall thickening, or obvious pericholecystic inflammatory changes. PANCREAS: Unremarkable. SPLEEN: Unremarkable. ADRENAL GLANDS: Unremarkable. KIDNEYS AND URETERS: The kidneys are normal in size, shape, and attenuation. No hydronephrosis, hydroureter, or calculi seen. No perinephric stranding. BLADDER: Unremarkable. GASTROINTESTINAL TRACT: There are acute inflammatory changes within the distal sigmoid proximal sigmoid junction with bowel wall thickening and diverticula are noted. No free air or abscess. No obstruction grossly. No small bowel pathology. Normal appendix. ABDOMINAL WALL: No significant hernia is appreciated. LYMPH NODES: Normal. VASCULAR: Unremarkable. PELVIC VISCERA: Unremarkable. OSSEOUS STRUCTURES: Unremarkable. CT/CT abdomen pelvis wo IV con IMPRESSION: Acute uncomplicated diverticulitis as above. Fleischner guidelines were followed. Electronically signed by: Geoff Rincon MD 07/11/2024 05:18 PM EDT
[2024-07-11 14:36] VITALS: BP 107/76; PULSE 72; RESP 19; TEMP 36.6; O2SAT 98; BMI 37.3
--- NOTE | 2024-07-11 14:37 | ED.ABDPAIN ---
HPI - Abdominal Pain General Chief Complaint: Urogenital-Male Stated Complaint: abd pain-blood in urine Related Data Home Medications ?Medication ?Instructions ?Recorded ?Confirmed albuterol sulfate 90 mcg/actuation 1 puff inhalation QID 10/27/20 11/24/20 aerosol inhaler Previous Rx's ?Medication ?Instructions ?Recorded amoxicillin 875 mg-potassium 1 tab PO Q8H 10 days #30 tabs 07/11/24 clavulanate 125 mg tablet Allergies Allergy/AdvReac Type Severity Reaction Status Date / Time No Known Drug Allergies Allergy Unknown NONE Verified 07/11/24 14:39 [NO KNOWN DRUG ALLERGIES] PMFSH Past Medical History Medical History Asthma Chronic anal fissure Diverticulitis Obesity Snoring Surgical History Hx of colonoscopy Hx of endoscopy History of elbow surgery Family History Family History Maternal Aunt History of breast cancer Maternal Uncle History of cancer of unknown primary site Social History Social History (Updated 02/21/24 @ 13:59 by PAUL Baig) Comment: counts correct Patient Tobacco Use Status: Former Tobacco user Cigarette Packs Per Day: 1.0 Cigarettes Per Day: 20.0 Second Hand Smoke Exposure: No Substance Use Type: Marijuana Advance Directives: No Advance Directives Information Provided: No Current occupational status: employed 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 Physical Exam ED Vital Signs: Vital Signs - 24 hr 07/11/24 14:36 Temperature 98 F Pulse Rate 72 Respiratory Rate 19 Blood Pressure 107/76 Pulse Oximetry 98 Oxygen Delivery Method Room Air BMI result Body Mass Index 37.3 Course Course Course Narrative: This is a Rapid Medical Exam performed in triage by Dione Lopez PA-C. Full HPI, ROS and PE to be performed by primary ED provider. 48 yo M presenting to the ED c/o sent in by Dr. 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 Pain radiates from LLQ to L testicle. +dysuria & frequency. denies N/V, hx stones PE: +LLQ abd ttp, No CVAT, no guarding Plan: Labs, UA, CTAP -patient left ED prior to CT results as needed last picker his children. -Aware of leukocytosis of 15 -1756--CT abdomen pelvis wo IV con IMPRESSION: Acute uncomplicated diverticulitis as above. Fleischner guidelines were followed. > called and spoke with patient. Made aware of results. Will send Augmentin to the pharmacy. Recommended clear liquid diet for 3 days and close follow-up with PCP Medical Decision Making Lab Data 07/11/24 14:48 07/11/24 15:07 Labs: Lab Results 07/11/24 07/11/24 Range/Units 14:48 15:07 WBC 15.3 H (4.8-10.8) X10*3/uL RBC 5.12 (4.60-5.80) X10*6/uL Hgb 16.2 (14.0-18.0) g/dl Hct 46.8 (42.0-52.0) % MCV 91.4 (80.0-98.0) fL MCH 31.6 (27.0-33.0) pg MCHC 34.6 (31.0-36.0) g/dl RDW 12.7 (11.0-16.0) % Plt Count 273 (160-400) X10*3/uL MPV 11.1 (9.4-12.4) fL Immature Gran % (Auto) 0.5 H (0.0-0.4) % Neut % (Auto) 55.8 (45-73) % Lymph % (Auto) 30.4 (20-40) % Creek % (Auto) 6.5 (2-11) % Eos % (Auto) 5.9 H (0-4) % Baso % (Auto) 0.9 (0-2) % Lymph # (Auto) 4.7 (1.2-4.9) X10*3/uL Creek # (Auto) 1.0 (0.1-1.2) X10*3/uL Eos # (Auto) 0.9 H (0.0-0.4) X10*3/uL Baso # (Auto) 0.1 (0.0-0.2) X10*3/uL Abs Immat Gran (auto) 0.08 H (0.00-0.03) X10*3/uL Absolute Neuts (auto) 8.5 H (2.0-8.3) x10*3/uL Absolute Nucleated RBC 0.000 (0.0-0.012) X10*3/uL Nucleated RBC % (auto) 0.0 (0.0-0.2) /100WBC Sodium 144 (135-145) mmol/L Potassium 4.4 (3.3-5.1) mmol/L Chloride 105 (96-108) mmol/L Carbon Dioxide 29 (22-29) mmol/L Anion Gap 14 (12-20) BUN 13 (9-16) mg/dL Creatinine 0.91 (0.5-1.4) mg/dL Estim Creat Clear Calc 136.9 Estimated GFR > 60 Random Glucose 90 (60-115) mg/dL Calcium 9.8 D (8.4-10.2) mg/dL Magnesium 2.1 (1.6-2.6) mg/dL Total Bilirubin 0.4 (0.0-1.0) mg/dL Direct Bilirubin 0.2 (0.0-0.5) mg/dL AST 19 (5-37) U/L ALT 21 (0-40) U/L Alkaline Phosphatase 75 (39-117) U/L Total Protein 8.0 (6.5-8.0) g/dL Albumin 4.3 (3.5-5.0) g/dL Lipase 17 (8-78) U/L Urine Color Yellow Urine Appearance Clear Urine pH 6.5 (5.0-9.0) Ur Specific [place] 1.020 (1.005-1.025) Urine Protein Negative (Neg-Trace) mg/dL Urine Glucose (UA) Negative (Negative) mg/dL Urine Ketones Negative (Negative) mg/dL Urine Blood Small (1+) H (Negative) Urine Nitrite Negative (Negative) Ur Leukocyte Esterase Negative (Negative) Urine RBC 6-10 H (0-2) /HPF Urine WBC 0-5 (0-5) /HPF Ur Squamous Epith Cells 0-2 (0-2) /HPF Urine Bacteria None Seen (None Seen) Hyaline Casts 0-2 (0-2) /LPF Discharge Plan Discharge Clinical Impression: Acute diverticulitis Patient Disposition: Left W/O Completing Treatment Prescriptions: New amoxicillin-pot clavulanate 875-125 mg tablet 1 tab PO Q8H 10 Days Qty: 30 0RF No Action albuterol sulfate 90 mcg/actuation HFA aerosol inhaler 1 puff inhalation QID Discharge Date/Time: 07/11/24 19:43
[2024-07-11 14:53] LABS: MANUAL DIFF FLAG NO
[2024-07-11 14:54] LABS: Basophils Absolute Auto 0.1 X10*3/uL (0.0-0.2); Basophils Percent Auto 0.9 % (0-2); Eosinophils Absolute Auto 0.9 X10*3/uL (0.0-0.4); Eosinophils Percent Auto 5.9 % (0-4); Hematocrit 46.8 % (42.0-52.0); Hemoglobin 16.2 g/dl (14.0-18.0); Imm Gran Abs Auto 0.08 X10*3/uL (0.00-0.03); Imm Gran Pct Auto 0.5 % (0.0-0.4); Lymphocytes Absolute Auto 4.7 X10*3/uL (1.2-4.9); Lymphocytes Percent Auto 30.4 % (20-40); Mean Corpuscular HGB Conc 34.6 g/dl (31.0-36.0); Mean Corpuscular Hemoglobin 31.6 pg (27.0-33.0); Mean Corpuscular Volume 91.4 fL (80.0-98.0); Mean Platelet Volume 11.1 fL (9.4-12.4); Monocytes Percent Auto 6.5 % (2-11); Neutrophils Absolute Auto 8.5 x10*3/uL (2.0-8.3); Neutrophils Percent Auto 55.8 % (45-73); Platelet Count 273 X10*3/uL (160-400); Red Blood Count 5.12 X10*6/uL (4.60-5.80); Red Cell Distribution Width 12.7 % (11.0-16.0); White Blood Count 15.3 X10*3/uL (4.8-10.8)
[2024-07-11 14:55] LABS: Appearance Urine Clear; Color Urine Yellow; Glucose Urine UA Negative (Negative); Leukocyte Esterase Urine Negative (Negative); Nitrite Urine Negative (Negative); PH 6.5 (5.0-9.0); UMIC TRIGGER UACC YES; Urine Blood Small (1+) (Negative); Urine Ketones Negative (Negative); Urine Protein Negative (Neg-Trace)
[2024-07-11 15:01] LABS: Bacteria Urine None Seen (None Seen); Hyaline Casts Urine 0-2 /LPF (0-2); Squamous Epithelial Cell Urine 0-2 /HPF (0-2); WBC Urine 0-5 /HPF (0-5)
[2024-07-11 15:40] LABS: Alanine Aminotransferase 21 U/L (0-40); Albumin Level 4.3 g/dL (3.5-5.0); Alkaline Phosphatase 75 U/L (39-117); Anion Gap 14 (12-20); Aspartate Amino Transferase 19 U/L (5-37); Bilirubin Direct 0.2 mg/dL (0.0-0.5); Bilirubin Total 0.4 mg/dL (0.0-1.0); Blood Urea Nitrogen 13 mg/dL (9-16); Calcium 9.8 mg/dL (8.4-10.2); Carbon Dioxide 29 mmol/L (22-29); Chloride 105 mmol/L (96-108); Creatinine Clr Calc Pharmacy 136.9; Estimated Glomerular Filt Rate > 60; Glucose Random 90 mg/dL (60-115); Lipase 17 U/L (8-78); Magnesium 2.1 mg/dL (1.6-2.6); Potassium 4.4 mmol/L (3.3-5.1); Sodium 144 mmol/L (135-145)
--- NOTE | 2024-07-11 19:24 | PC.NURSE ---
No answer in the WR @ 1915.
--- NOTE | 2024-07-11 19:31 | PC.NURSE ---
I was able to speak to pt via his cell phone. per pt, he left at 1630, had to clam picker his kids. Pt reports a provider has already called him and called him in an RX for ABX.
== END 2024-07-11 19:43 | disposition left against medical advice (07) ==
LOC: HO.ED 19:36
PROVIDERS: Physician Assistant; Emergency Provider Emergency Medicine; PCP Internal Medicine Medical Oncology
DX: K57.32 Diverticulitis of large intestine without perforation or abscess without bleeding (principal); R10.32 Left lower quadrant pain; R31.9 Hematuria, unspecified; Z87.891 Personal history of nicotine dependence
CPT/HCPCS: 36415; 74176; 80048; 80076; 81001; 83690; 83735; 85025; 99282; 99284

== ENCOUNTER 2024-07-11 17:47 | Outpatient (REF) | payer MEDICAID, SELFPAY ==
[2024-07-11 17:53] LABS: Appearance Urine Clear; Color Urine Yellow; Glucose Urine UA Negative (Negative); Leukocyte Esterase Urine Negative (Negative); Nitrite Urine Negative (Negative); PH 6.5 (5.0-9.0); UMIC TRIGGER UA YES; Urine Blood Trace (Negative); Urine Ketones Negative (Negative); Urine Protein Negative (Neg-Trace)
[2024-07-11 17:56] LABS: Bacteria Urine None Seen (None Seen); Hyaline Casts Urine 0-2 /LPF (0-2); Squamous Epithelial Cell Urine 0-2 /HPF (0-2); WBC Urine 0-5 /HPF (0-5)
== END 2024-07-11 17:48 | disposition home or self-care (01) ==
LOC: HO.LNP 17:47
PROVIDERS: Visit Provider Internal Medicine Medical Oncology
DX: R31.9 Hematuria, unspecified (principal); R10.32 Left lower quadrant pain
CPT/HCPCS: 81001; 87086

== ENCOUNTER 2024-11-02 10:11 | Emergency (ER) | payer OTHER, SELFPAY ==
--- NOTE | ~2024-11-02 | XR_ITS ---
EXAMINATION: XR CHEST CLINICAL INFORMATION: dyspnea on exertion COMPARISON: None available. TECHNIQUE: 2 views of the chest were obtained. FINDINGS: The lungs are emphysematous but clear acute process. Heart size and pulmonary vascularity is normal. There is mild dextroscoliosis of dorsal spine. No aggressive lytic or sclerotic process seen. XR/XR chest 2V IMPRESSION: Diffuse emphysematous lungs without acute process. Electronically signed by: Steven Bolaños MD 11/02/2024 11:02 AM VARUN
--- NOTE | 2024-11-02 10:15 | ECG_ITS ---
Test Reason : weakness Blood Pressure : */* mmHG Vent. Rate : 65 BPM Atrial Rate : 65 BPM P-R Int : 154 ms QRS Dur : 90 ms QT Int : 390 ms P-R-T Axes : 37 76 57 degrees QTcB Int : 405 ms Normal sinus rhythm Normal ECG No previous ECGs available Referred By: Doc Kowalski Electronically Signed By: JEANNIE GARCIA MD
[2024-11-02 10:17] VITALS: BP 148/95; PULSE 72; RESP 20; TEMP 35.8; O2SAT 97; BMI 35.4
--- NOTE | 2024-11-02 10:19 | ED_ITS ---
HPI - Asthma General Chief Complaint: Dyspnea Stated Complaint: SOB Time Seen by Provider: 11/02/24 10:52 History of Present Illness HPI Narrative: This is a patient sent from Dr. Swenson's office for 2 reasons the 1st main reason is difficulty breathing lots of wheezing and looking unwell The 2nd reason is he has lost about 15 lb over the last month without any attempt to lose weight, he does not feel weak or dizzy he has not been vomiting no diarrhea, he says he has been eating The shortness of breath began several days ago when steam pipe broke in his apartment and when he went to shut it off he breathe through lot of fumes and dust and soon after started wheezing, he does have a long history of asthma He has no chest pain, the wheezing is present all the time except for brief intervals when relieved by his albuterol nebulizer, he said yesterday he used the nebulizer about every 3 hours Negatives are no headache no stiff neck no chest pain no diaphoresis no abdominal pain no nausea vomiting or diarrhea no leg swelling Related Data Home Medications ?Medication ?Instructions ?Recorded ?Confirmed albuterol sulfate 90 mcg/actuation 1 puff inhalation QID 10/27/20 11/24/20 aerosol inhaler Previous Rx's ?Medication ?Instructions ?Recorded amoxicillin 875 mg-potassium 1 tab PO Q8H 10 days #30 tabs 07/11/24 clavulanate 125 mg tablet prednisone 20 mg tablet 60 mg (3 x 20 mg) PO DAILY 5 days 11/02/24 #15 tabs Allergies Allergy/AdvReac Type Severity Reaction Status Date / Time No Known Drug Allergies Allergy Unknown NONE Verified 11/02/24 10:21 [NO KNOWN DRUG ALLERGIES] PMFSH Past Medical History Source: nursing notes reviewed Medical History Asthma Chronic anal fissure Diverticulitis Obesity Snoring Surgical History Hx of colonoscopy Hx of endoscopy History of elbow surgery Family History Family History Maternal Aunt History of breast cancer Maternal Uncle History of cancer of unknown primary site Social History Social History (Updated 02/21/24 @ 13:59 by PAUL Baig) Comment: counts correct Patient Tobacco Use Status: Former Tobacco user Cigarette Packs Per Day: 1.0 Cigarettes Per Day: 20.0 Second Hand Smoke Exposure: No Substance Use Type: Marijuana Advance Directives: No Advance Directives Information Provided: Yes Current occupational status: employed 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 Physical Exam 2 Vital Signs: Vital Signs: Last Vital Signs Temp 98.3 F 11/02/24 14:01 Pulse 70 11/02/24 14:01 Resp 14 11/02/24 14:01 BP 142/83 H 11/02/24 14:01 Pulse Ox 94 11/02/24 14:01 O2 Del Method Room Air 11/02/24 14:01 BMI result Body Mass Index 35.4 General appearance no acute distress but uncomfortable breathing about 20 times a minute, but speaking full sentences Eyes no redness or discharge The pharynx is clear without redness swelling or exudate voice is normal, membranes are moist Neck is supple The chest there is decreased air entry bilateral with lots of inspiratory and expiratory wheezing Heart no murmur auscultated Abdomen soft nontender Extremities no edema no calf tenderness or swelling Course Course Course Narrative: 48 yo male with recent unintentional weight loss, night sweats, asthma has nebulizer - no prednisone in 2 years, cough with tannish yellow, no smoking in 2 years, PCP visit today sent over. At this time will start basic labs, EKG, CXR, viral panel - needs IV steroids and bronch therapy. He reports he feels weakness. this is a RAPID medical screening exam the rest of the history and physical exam is to be done by the main provider. Patient was treated initially with 1 albuterol treatment and felt no improvement and when I examined him at that time there was lots of wheezing and chest tightness and he was symptomatic After 1 hour neb he said he felt much better he was walking around speaking full sentences he said he felt he was breathing normally When I reexamined him his lung sounds were full and clear and symmetric with very scant scattered wheezes good very improved air entry I contacted Dr. Swenson who had sent him to the ER and discuss the case and Dr. Swenson agreed if he is feeling well and breathing comfortably he is good to go home and could follow with Dr. Swenson's office to re-evaluate the weight loss Patient will be discharged on steroid and knows he can return any time if his shortness of breath returns Labs the white count was 11 on the CBC which is attributed to stress INR was 1.1 No acute findings on chemistry ETOH was under 10 COVID and flu tests were negative Chest x-ray showed diffuse emphysematous lungs but without signs of pneumonia or infection, no pneumothorax EKG was a normal sinus rhythm with a rate of 65 normal intervals no acute ST changes no acute ischemic changes Medications Administered Discontinued Medications Generic Name Dose Route Start Last Admin Trade Name Gurpreet PRN Reason Stop Dose Admin Albuterol Sulfate 2.5 mg/ 5 mg 11/02/24 10:45 11/02/24 10:49 Albuterol Sulfate 2.5 mg INHALE 11/02/24 10:46 5 mg ONCE ONE Administration Albuterol Sulfate 7.5 mg/ 10 mg 11/02/24 12:45 11/02/24 13:06 Albuterol Sulfate 2.5 mg INHALE 11/02/24 12:46 10 mg ONCE ONE Administration Methylprednisolone Sodium Succinate 60 mg 11/02/24 10:21 11/02/24 10:57 Methylprednisolone Sod Succ 125 Mg/2 Ml Vial IVPUSH 11/02/24 10:22 60 mg ONCE ONE Administration Medical Decision Making Lab Data 11/02/24 10:47 11/02/24 10:47 Labs: Lab Results 11/02/24 11/02/24 Range/Units 10:47 10:47 WBC 11.4 H (4.8-10.8) X10*3/uL RBC 4.95 (4.60-5.80) X10*6/uL Hgb 15.4 (14.0-18.0) g/dl Hct 44.1 (42.0-52.0) % MCV 89.1 (80.0-98.0) fL MCH 31.1 (27.0-33.0) pg MCHC 34.9 (31.0-36.0) g/dl RDW 12.3 (11.0-16.0) % Plt Count 265 (160-400) X10*3/uL MPV 10.8 (9.4-12.4) fL Immature Gran % (Auto) 0.4 (0.0-0.4) % Neut % (Auto) 46.5 (45-73) % Lymph % (Auto) 39.3 (20-40) % Lumpkin % (Auto) 6.0 (2-11) % Eos % (Auto) 6.8 H (0-4) % Baso % (Auto) 1.0 (0-2) % Lymph # (Auto) 4.5 (1.2-4.9) X10*3/uL Lumpkin # (Auto) 0.7 (0.1-1.2) X10*3/uL Eos # (Auto) 0.8 H (0.0-0.4) X10*3/uL Baso # (Auto) 0.1 (0.0-0.2) X10*3/uL Abs Immat Gran (auto) 0.04 H (0.00-0.03) X10*3/uL Absolute Neuts (auto) 5.3 (2.0-8.3) x10*3/uL Absolute Nucleated RBC 0.000 (0.0-0.012) X10*3/uL Nucleated RBC % (auto) 0.0 (0.0-0.2) /100WBC Smear Tech's Comments VERIFIED PT 13.2 H (10.9-12.4) SEC INR 1.1 (0.9-1.1) Sodium 139 (135-145) mmol/L Potassium 4.2 (3.3-5.1) mmol/L Chloride 110 H (96-108) mmol/L Carbon Dioxide 22 (22-29) mmol/L Anion Gap 11 L (12-20) BUN 13 (9-16) mg/dL Creatinine 0.82 (0.5-1.4) mg/dL Estim Creat Clear Calc 147.8 Estimated GFR > 60 Random Glucose 88 (60-115) mg/dL Calcium 8.9 D (8.4-10.2) mg/dL Magnesium 2.1 2.1 (1.6-2.6) mg/dL Total Bilirubin 0.6 (0.0-1.0) mg/dL Direct Bilirubin 0.2 (0.0-0.5) mg/dL AST 28 (5-37) U/L ALT 36 (0-40) U/L Alkaline Phosphatase 93 (39-117) U/L Troponin I High Sens < 2.7 (<3.5-35.0) ng/L C-Reactive Protein 0.54 H (< or = 0.50) mg/dL B-Natriuretic Peptide < 10 (<100) pg/mL Total Protein 7.9 (6.5-8.0) g/dL Albumin 4.1 (3.5-5.0) g/dL Lipase 65 (8-78) U/L Ethyl Alcohol < 10 mg/dL Influenza Type A (PCR) NEGATIVE (Negative) Influenza Type B (PCR) NEGATIVE (Negative) RSV RNA Qual (PCR) NEGATIVE (Negative) SARS-CoV-2 RNA (RT-PCR) NEGATIVE (Negative) Discharge Plan Discharge Clinical Impression: Asthma, Abnormal weight loss Patient Disposition: Home, Self-Care Additional Instructions: Your responded very well to treatment for asthma and at this point her wheezing is almost gone your breath sounds are much ob[place] and you feel much better The weight loss we could not explain with a labs x-ray or EKG done today I spoke to Dr. Swenson who said call the office need see you Tuesday or Tuesday next week Most important of breathing gets worse, or any worse condition or any concerns return to the ER any time Prescriptions: New prednisone 20 mg tablet 60 mg PO DAILY 5 Days Qty: 15 0RF No Action amoxicillin-pot clavulanate 875-125 mg tablet 1 tab PO Q8H 10 Days Qty: 30 0RF albuterol sulfate 90 mcg/actuation HFA aerosol inhaler 1 puff inhalation QID Print Language: Taiwanese
[2024-11-02 10:44] VITALS: PULSE 87; RESP 22; O2SAT 95
[2024-11-02] MEDS: Albuterol Sulfate 2.5 MG, Albuterol Sulfate (0.083%) 2.5 MG 5 MG INHALE (10:49)
[2024-11-02 10:54] LABS: Basophils Absolute Auto 0.1 X10*3/uL (0.0-0.2); Eosinophils Absolute Auto 0.8 X10*3/uL (0.0-0.4); Eosinophils Percent Auto 6.8 % (0-4); Hematocrit 44.1 % (42.0-52.0); Hemoglobin 15.4 g/dl (14.0-18.0); Imm Gran Abs Auto 0.04 X10*3/uL (0.00-0.03); Imm Gran Pct Auto 0.4 % (0.0-0.4); Lymphocytes Absolute Auto 4.5 X10*3/uL (1.2-4.9); Lymphocytes Percent Auto 39.3 % (20-40); MANUAL DIFF FLAG SCAN; Mean Corpuscular HGB Conc 34.9 g/dl (31.0-36.0); Mean Corpuscular Hemoglobin 31.1 pg (27.0-33.0); Mean Corpuscular Volume 89.1 fL (80.0-98.0); Mean Platelet Volume 10.8 fL (9.4-12.4); Monocytes Absolute Auto 0.7 X10*3/uL (0.1-1.2); Neutrophils Absolute Auto 5.3 x10*3/uL (2.0-8.3); Neutrophils Percent Auto 46.5 % (45-73); Platelet Count 265 X10*3/uL (160-400); Red Blood Count 4.95 X10*6/uL (4.60-5.80); Red Cell Distribution Width 12.3 % (11.0-16.0); SCAN SMEAR FLAG 1; White Blood Count 11.4 X10*3/uL (4.8-10.8)
[2024-11-02] MEDS: methylPREDNISolone Sod Succ 125 MG/2 ML VIAL 60 MG IVPUSH (10:57)
[2024-11-02 11:08] LABS: Ethanol < 10 mg/dL; Lipase 65 U/L (8-78); Magnesium 2.1 mg/dL (1.6-2.6)
[2024-11-02 11:09] LABS: Alanine Aminotransferase 36 U/L (0-40); Albumin Level 4.1 g/dL (3.5-5.0); Alkaline Phosphatase 93 U/L (39-117); Anion Gap 11 (12-20); Aspartate Amino Transferase 28 U/L (5-37); Bilirubin Direct 0.2 mg/dL (0.0-0.5); Bilirubin Total 0.6 mg/dL (0.0-1.0); Blood Urea Nitrogen 13 mg/dL (9-16); C Reactive Protein 0.54 mg/dL (< or = 0.50); Calcium 8.9 mg/dL (8.4-10.2); Carbon Dioxide 22 mmol/L (22-29); Chloride 110 mmol/L (96-108); Creatinine Clr Calc Pharmacy 147.8; Estimated Glomerular Filt Rate > 60; Glucose Random 88 mg/dL (60-115); Magnesium 2.1 mg/dL (1.6-2.6); Potassium 4.2 mmol/L (3.3-5.1); Sodium 139 mmol/L (135-145); Total Protein 7.9 g/dL (6.5-8.0)
[2024-11-02 11:13] LABS: B Type Natriuretic Peptide < 10 pg/mL (<100)
[2024-11-02 11:15] LABS: Troponin-I High Sensitivity < 2.7 ng/L (<3.5-35.0)
[2024-11-02 11:20] LABS: SLIDE REVIEW VERIFIED
[2024-11-02 11:23] LABS: INTERNATIONAL NORM RATIO 1.1 (0.9-1.1); Prothrombin Time 13.2 SEC (10.9-12.4)
[2024-11-02 11:32] LABS: Influenza A PCR NEGATIVE (Negative); Influenza B PCR NEGATIVE (Negative); Resp Syncy Virus RNA Qual PCR NEGATIVE (Negative); SARS COV2 PCR INHOUSE NEGATIVE (Negative)
[2024-11-02 13:06] VITALS: PULSE 89; RESP 20; O2SAT 96
[2024-11-02] MEDS: Albuterol Sulfate 7.5 MG, Albuterol Sulfate (0.083%) 2.5 MG 10 MG INHALE (13:06)
[2024-11-02 14:01] VITALS: BP 142/83; PULSE 70; RESP 14; TEMP 36.8; O2SAT 94
[2024-11-02 14:13] VITALS: BP 142/83; PULSE 70; RESP 14; TEMP 36.8; O2SAT 94
== END 2024-11-02 14:14 | disposition home or self-care (01) ==
PROVIDERS: Emergency Medicine; Emergency Provider Emergency Medicine; PCP Internal Medicine Medical Oncology
DX: J45.909 Unspecified asthma, uncomplicated (principal); R06.02 Shortness of breath; R63.4 Abnormal weight loss; Z68.35 Body mass index [BMI] 35.0-35.9, adult; Z03.818 Encounter for observation for suspected exposure to other biological agents ruled out; F12.90 Cannabis use, unspecified, uncomplicated; Z87.891 Personal history of nicotine dependence; Z79.899 Other long term (current) drug therapy
CPT/HCPCS: 0241U; 36415; 71046; 80048; 80076; 80307; 83690; 83735; 83880; 84484; 85025; 85610; 86140; 93005; 94640; 96374; 99284; J2919

== ENCOUNTER → 2024-11-02 10:15 | Outpatient (BNV) | payer SELFPAY | PROVIDERS: Emergency Provider Emergency Medicine; PCP Internal Medicine Medical Oncology; Visit Provider Internal Medicine Cardiovascular Disease | DX: R53.1 Weakness (principal) | CPT/HCPCS: 93010 ==

== ENCOUNTER → 2024-11-02 10:21 | Outpatient (BNV) | payer SELFPAY | PROVIDERS: Emergency Provider Emergency Medicine; PCP Internal Medicine Medical Oncology; Visit Provider Radiology Diagnostic Radiology | DX: R06.00 Dyspnea, unspecified (principal) | CPT/HCPCS: 71046 ==

== ENCOUNTER → 2024-12-13 08:19 | Outpatient (REF) | payer MEDICAID, SELFPAY ==
--- NOTE | 2024-12-13 08:23 | CA_ITS ---
Acquisition Time: 2024-12-13 08:29:38 Total Exercise Time: 00:08:43 Test Indications: CP Medications: ALBUTEROL INHALER Protocol: AIMEE Max HR: 144 BPM 83% of Pred: 173 BPM Max BP: 180/68 mmHG Max Work Load: 9.4 METS Exercise Stress Test with exercise 8 mins 43 secs of Aimee Protocol, decreased speed to 3.0 and increased incline to 15% at Stage 3, achieving 84% MPHR, with reports of leg discomfort requesting to stop, with moderate SOB and dizziness, no chest discomfort, without any arrythmias, with normotensive response to exercise. In recovery, breathing returned to baseline and dizziness resolved. Test reviewed with Dr. Lee. Referred By: Scottie Swenson Electronically Signed By: Carlitos Boston
--- OUTSIDE RECORDS SUMMARY | 2024-12-13 08:43 | XMS_ITS ---
Author Organization Scottie Swenson III, MD Address [address] [address] Care Team Providers Care Career Technical Education Instructor Name Role Phone Scottie Swenson Primary Care Provider REASON FOR VISIT Message Social History Sex Assigned At : Social History Observation Description Sex Assigned At Male Encounters Encounter Location Date Provider Diagnosis Scottie Swenson III, MD [address] [place] [address] [place] [address] 12/10/2024 Scottie Swenson Plan Of Treatment Next Appt Details Provider Name:Scottie Swenson, 12/21/2024 09:15:00 AM, [address] [place] [address] [place], [address], Provider Name:Scottie Swenson, 05/22/2025 03:00:00 PM, [address] [place] [address] [place], [address], Progress Notes * Caleb LOPEZOB: (48 yo M)Acc No.[id number]:12/10/2024 Patient:?Hiro LOPEZ :1975???Age:48 Y???Sex:Male Address:[place], [address] * true * Date:? Generated for Cesar ga/Catalina/eTransmitting on:?12/13/2024 08:43 AM EST
--- OUTSIDE RECORDS SUMMARY | 2024-12-13 08:43 | XMS_ITS ---
Author Organization Scottie Swenson III, MD Address [address] [address] Care Team Providers Care Welfare Centre Manager Name Role Phone Scottie Swenson Primary Care Provider [phone] Medications Medication SIG (Take, Route, Frequency, Duration) Notes Start Date End Date Status Albuterol Sulfate (2.5 MG/3ML) 0.083% 3 mL as needed Inhalation every 6 hrs for 28 days 11/10/2024 Active Social History Sex Assigned At : Social History Observation Description Sex Assigned At Male Encounters Encounter Location Date Provider Diagnosis Scottie Swenson III, MD [address] [place] [address] [place] [address] 11/10/2024 Scottie Swenson Plan Of Treatment Medication Medication Name Sig Start Date Stop Date Notes Albuterol Sulfate (2.5 MG/3ML) 0.083% 3 mL as needed Inhalation every 6 hrs for 28 days 11/10/2024 Next Appt Details Provider Name:Scottie Swenson, 12/21/2024 09:15:00 AM, [address] [place] [address] [place], [address], Provider Name:Scottie Swenson, 05/22/2025 03:00:00 PM, [address] [place] [address] [place], [address], Progress Notes * Caleb LOPEZOB: (48 yo M)Acc No.[id number]:11/10/2024 Patient:?Hiro LOPEZ :1975???Age:48 Y???Sex:Male Address: [address], [place], [address] * Refills? Start Albuterol Sulfate Nebulization Solution, (2.5 MG/3ML) 0.083%, Inhalation, 336 ML, 3 mL as needed, every 6 hrs, 28 days, Refills=11 * true * Date:? Generated for Cesar ga/Catalina/Eddiesmitting on:?12/13/2024 08:43 AM EST
--- OUTSIDE RECORDS SUMMARY | 2024-12-13 08:43 | XMS_ITS | Clinical Summary ---
Author Organization [facility] ity Address [address] [place] [address] Care Team Providers Care End User Support Specialist Name Role Phone Unavailable Primary Care Provider Unavailabl e Social History Tobacco Use Types Packs/Day Years Used Date Smoking Tobacco: Never Assessed Sex and Gender Information Value Date Recorded Sex Assigned at Not on file Legal Sex Male 5:41 AM EST Gender Identity Not on file Sexual Orientation Not on file Plan of Treatment Health Maintenance Due Date Last Done Comments DTaP,Tdap,and Td Vaccines (1 - Tdap) 12/30/1995 Hepatitis B Vaccines (1 of 3 - 19+ 3-dose series) 12/30/1995 Cholesterol Screening (Lipid Panel) 09/19/2022 Colorectal Cancer Screening: Colonoscopy 09/19/2022 Depression Screening 09/19/2022 HIV Screening 09/19/2022 Hepatitis C Screening 09/19/2022 Social Influencers of Health Screening 09/19/2022 COVID-19 Vaccine ( - 2023-2 5 season) 2024 Influenza Vaccine (#1) 2024 HIB Vaccines Aged Out No longer eligi ble based on patient's age to complete this topic HPV Vaccines Aged Out No longer eligi ble based on patient's age to complete this topic Hepatitis A Vaccines Aged Out No long er eligible based on patient's age to complete this topic IPV Vaccines Aged Out No longer eligi ble based on patient's age to complete this topic MMR Vaccines Aged Out No longer eligi ble based on patient's age to complete this topic Meningococcal ACWY Vaccine Aged Out N o longer eligible based on patient's age to complete this topic Meningococcal B Vacine Aged Out No lo nger eligible based on patient's age to complete this topic Pneumococcal Vaccine: Pediat rics (0 to 5 Years) and At-Risk Patients (6 to 64 Years) Aged Out No longer eligible b ased on patient's age to complete this topic RSV Immunization Patients Un lorena 20 months Aged Out No longer eligible b ased on patient's age to complete this topic Varicella Vaccines Aged Out No longer eligible based on patient's age to complete this topic
--- OUTSIDE RECORDS SUMMARY | 2024-12-13 08:43 | XMS_ITS ---
Author Organization Scottie Swenson III, MD Address [address] [address] Care Team Providers Care Shot Blaster Name Role Phone Scottie Swenson Primary Care Provider [phone] Allergies Allergen (clinical drug ingredient) Drug/Non Drug Allergy documented on EMR Reaction Allergy Type Onset Date Status Bee Sting Unknown Allergy Active Wellbutrin suicidal ideation Drug Allergy Active prednisone predniSONE Unknown Drug Allergy Activ e REASON FOR VISIT Severe anxiety for 2 months, Complains of chest pains, Complains of headaches, Nocturia, Insomnia, History of depression Medications Medication SIG (Take, Route, Frequency, Duration) Notes Start Date End Date Status Albuterol Sulfate (5 MG/ML) 0.5% as directed Inhalation four times a day for asthma 11/09/2024 Active Albuterol Sulfate (2.5 MG/3ML) 0.083% 3 mL as needed Inhalation every 6 hrs 11/10/2024 Active Albuterol Sulfate 108 (90 Base) MCG/ACT 1 puff as needed Inhalation every 4 hrs Active Sertraline HCl 25 MG 1 tablet Orally Onc e a day for 30 days 12/07/2024 Active Social History Tobacco Use: Social History Observation Description Date Details (start date - stop date) Former Smoker NA - NA Sex Assigned At : Social History Observation Description Sex Assigned At Male Tobacco Use/Smoking Question Answer Notes Patient is a former smoker How long has it been since you last smoked? 1-5 years Additional Findings: Tobacco Non-User Ex-cigaret te smoker Problems Problem Type SNOMED Code ICD Code Onset Dates Problem Status W/U Status Risk Notes Problem 109825816 Anxiety disorder, unspecified (F41.9) Active confirmed he feels very anxious and has had several episodes of panic. She has been having headaches and chest pains. To rule out cardiac disease he is going to have a stress test. I have begun him on sertraline 50 mg daily with a follow-up appointment in 21 days. I have discussed that time until onset of relief with this medication. Vital Signs Blood pressure systolic 142 mm Hg 12/07/19 25 Blood pressure diastolic 84 mm Hg 025 Heart Rate 61 /min 12/07/2024 Height 70 in 12/07/2024 Weight 265 lbs 12/07/2024 BMI 38.02 kg/m2 12/07/2024 Oximetry 97.2 % 12/07/2024 Encounters Encounter Location Date Provider Diagnosis Scottie Swenson III, MD [address] [place] [address] [place] [address] 12/07/2024 Scottie Swenson History of depressio n Z86.59 ; Anxiety disorder, unspecified F41.9 ; Chest pain R07.9 ; Depression, unspecified F32.A ; History of asthma Z87.09 ; Idiopathic acute pancreatitis with uninfected necrosis K85.01 ; Mixed hyperlipidemia E78.2 ; Obesity (BMI 30-39.9) E66.9 and Former smoker Z87.891 Assessments Encounter Date Diagnosis (ICD Code) Assessment Notes Treat ment Notes Treatment Clinical Notes 12/07/2024 History of depressio n (ICD-10 - Z86.59) This depression was absent today. The stable and is capable of all activities of daily life without impairment. 12/07/2024 Anxiety disorder, unspecified (ICD-10 - F41.9) he feels very anxious and has had several episodes of panic. She has been having headaches and chest pains. To rule out cardiac disease he is going to have a stress test. I have begun him on sertraline 50 mg daily with a follow-up appointment in 21 days. I have discussed that time until onset of relief with this medication. 12/07/2024 Chest pain (ICD-10 - R07.9) pain is a sharp stabbing pain in the upper right chest which does not sound anginal. 12/07/2024 Depression, unspecified (ICD-10 - F32.A) he has a history of depression which seems about the same but his anxiety has appeared and is severe. 12/07/2024 History of asthma (ICD-10 - Z87.09) there were no wheezes in the chest today and he was breathing room air comfortably despite the agitation. 12/07/2024 Idiopathic acute pancreatitis with uninfected necrosis (ICD-10 - K85.01) He has a history of pancreatitis and was complaining of abdominal pain today. Pain was described as bilateral and below his umbilicus. Although this is unlikely pancreatitis he was referred to the emergency room because of the complexity of his acute illnesses. 12/07/2024 Mixed hyperlipidemia (ICD-10 - E78.2) His lipids will be checked periodically. 12/07/2024 Obesity (BMI 30-39.9 ) (ICD-10 - E66.9) He has lost 11 pounds since his last visit. His body mass index is 39. We have discussed his weight loss strategy and diet and nutrition. He will continue to lose weight at a rate of one half of a pound per week to a diet restricted in fat calories and sodium combined with regular physical activity. 12/07/2024 Former smoker (ICD-1 0 - Z87.891) He has stopped smoking. We made a plan to prevent relapse in times of stress and illness. Plan Of Treatment Medication Medication Name Sig Start Date Stop Date Notes Albuterol Sulfate (5 MG/ML) 0.5% as directed Inhalation four times a day for asthma 11/09/2024 Albuterol Sulfate (2.5 MG/3ML) 0.083% 3 mL as needed Inhalation every 6 hrs 11/10/2024 Albuterol Sulfate 108 (90 Base) MCG/ACT 1 puff as needed Inhalation every 4 hrs Sertraline HCl 25 MG 1 tablet Orally Onc e a day for 30 days 12/07/2024 Pending Test Test Name Order Date Stress Test 12/07/2024 Next Appt Details Follow Up: 2 Weeks, 1 week, Reason: OV, Check-up and review of symptoms and medication effects Provider Name:Scottie Swenson, 12/21/2024 09:15:00 AM, [address] [place] [address] [place] [address], [place], [address], Provider Name:Scottie Swenson, 05/22/2025 03:00:00 PM, [address] [place] [address] [address], [place], [address], Progress Notes * Caleb LOPEZOB: (48 yo M)Acc No.[id number]:12/07/2024 Progress Notes Patient:?Hiro LOPEZ Provider:?Scottie Swenson MD :1975???Age:48 Y???Sex:Male Harley e:12/07/2024 Address: [address] [facility] Subjective: * Chief Complaints: * ???Severe anxiety for 2 burak hsComplains of chest painsComplains of headachesNocturiaInsomniaHistory of depression * HPI: ???COVID-19 Screening:?Questions?Have you had any new onset fever, chills, cough, congestion, sore throat, shortness of breath, muscle aches??No ???:? The patient, a 48-year-old male, presented with intermittent episodes of chest pain and anxiety. The chest pain, which the patient described as sudden and unexpected, was accompanied by feelings of overheating and fainting. The patient also reported experiencing memory issues. The patient's symptoms seem to vary in intensity and timing. The patient also reported nocturia, urinating 3 to 4 times a night, which is above the normal frequency. The patient has a history of carpal tunnel surgery but still experiences pain and shaking in the arm after use. The patient also reported issues with his skin, but no further details were provided. The patient's vitals were checked, and his blood pressure was found to be 138 over an unspecified value. The patient's symptoms seem to have started after the of his brother, suggesting a possible psychological trigger. * ROS:?General/Constitutional:?pain?Complains of brain pain.?Chills?denies.?Fatigue?admits.?Fever?denies.?ENT:?Decreased hearing?denies.?Respiratory:?Cough?denies.?Cardiovascular:?Chest pain with exertion?denies.?Dyspnea on exertion?denies.?Shortness of breath?denies.?Gastrointestinal:?Constipation?occasional.?Decreased appetite?denies.?Diarrhea?denies.?Heartburn?occasional.?Nausea?denies.?Rectal bleeding?denies.?Vomiting?denies.?Hematology:?bruising?denies.?petechiae?denies.?Swollen glands?none have been noted.?Genitourinary:?Frequent urination?once a night.?Musculoskeletal:?Muscle aches?denies.?Painful joints?denies.?Sciatica?denies.?Weakness?denies.?Skin:?Itching?denies.?Rash?denies.?Skin lesion(s)?denies.?Neurologic:?Difficulty speaking?denies.?Dizziness?denies.?Headache?that is new.?Low back pain?denies.?Psychiatric:?Depressed mood?which is moderate.? * Medical History:? * Surgical History:?his surger y age 18 Left lateral Sphincterotomy [id number] hand carpal tunnel 01/2024No history Carpal tunnel surgery * Hospitalization/Major Diagno stic Procedure:?Acute pancreatitis olonoscopy 2020 No history * Family History:?Father: No i nformation available.?Mother: depression.?Daughter(s): alive.?Siblings: alive.?2 brother(s) . 1 daughter(s) - healthy. .? They paternal grandfather, who is , had diabetes mellitus, cancer and a myocardial infarction. A paternal grandmother who is , had diabetes. A maternal grandfather who is , had diabetes and coronary artery disease. A maternal grandmother had diabetes mellitus. A paternal aunt had a brain tumor. One niece has juvenile diabetes and a daughter has autism. He is not aware of any family history of addiction or substance use disorder or mental illness. * Social History:?Tobacco Use:?Tobacco Use/Smoking?Patient is a?former smoker ?How long has it been since you last smoked??1-5 years ?Additional Findings: Tobacco Non-User?Ex-cigarette smoker * Medications:?TakingAlbuterol Sulfate 108 (90 Base) MCG/ACT Aerosol Powder Breath Activated 1 puff as needed Inhalation every 4 hrs Albuterol Sulfate (2.5 MG/3ML) 0.083% Nebulization Solution 3 mL as needed Inhalation every 6 hrs Taking Albuterol Sulfate 108 (90 Base) MCG/ACT Aerosol Powder Breath Activated 1 puff as needed Inhalation every 4 hrs Taking Albuterol Sulfate (2.5 MG/3ML) 0.083% Nebulization Solution 3 mL as needed Inhalation every 6 hrs DiscontinuedAlbuterol Sulfate (5 MG/ML) 0.5% Nebulization Solution as directed Inhalation four times a day for asthma Medication List reviewed and reconciled with the patientDiscontinued Albuterol Sulfate (5 MG/ML) 0.5% Nebulization Solution as directed Inhalation four times a day for asthma Medication List reviewed and reconciled with the patient * Allergies:?Wellbutrin: suici awa ideationBee StingpredniSONE: Side Effects - Criticality Highno[Allergies Verified] Objective: * Vitals:?Ht: 70, Wt: 265, BMI :38.02, BP: 142/84, HR: 61, Oxygen sat %: 97.2, Wt- k.2. * Examination: ???General Examination: ?GENERAL APPEARANCE:?pleasant, well nourished, well developed, in no acute distress,anxious, obese, man.?HEAD:?atraumatic, normocephalic.?EYES:?eomi, perrla, anicteric, conjugate.?EARS:?normal.?NOSE:?septum intact.?ORAL CAVITY:?normal, unremarkable.?NECK/THYROID:?no jugular venous distention, no carotid bruit, thyroid normal.?LYMPH NODES:?no enlarged lymph nodes,spleen normal.?SKIN:?no suspicious lesions, anicteric.?HEART:?no clicks, gallops, murmurs, or rubs, regular rhythm, S1, S2 normal, no s3, or vascular bruits.?LUNGS:?clear to auscultation .?BREASTS:??no masses palpable bilaterally.?ABDOMEN:?bowel sounds normal, no ascites, no organomegaly, no mass, centripital obesity.?RECTAL EXAM:?not examined.?MUSCULOSKELETAL:?extremities unremarkable, no clubbing, cyanosis or edema.?PERIPHERAL PULSES:?normal.?NEUROLOGIC:?alert and oriented, cranial nerves 2-12 grossly intact, deep tendon reflexes 2+ symmetrical, motor strength normal upper and lower extremities, sensory exam intact, anxious.?PSYCH:?alert, oriented, mood depressed, anxious appearing.? Assessment: * Assessment: 1.?Anxiety disorder, unspeci fied - F41.9 (Primary)???Notes :he feels very anxious and has had several episodes of panic.? She has been having headaches and chest pains.? To rule out cardiac disease he is going to have a stress test.? I have begun him on sertraline 50 mg daily with a follow-up appointment in 21 days.? I have discussed that time until onset of relief with this medication.???2.?History of depression - Z86.59???Notes :This depression was absent today. The stable and is capable of all activities of daily life without impairment.???3.?Chest pain - R07.9???Notes :pain is a sharp stabbing pain in the upper right chest which does not sound anginal.???4.?Depression, unspecified - F32.A???Notes :he has a history of depression which seems about the same but his anxiety has appeared and is severe.???5.?History of asthma - Z87.09???Notes :there were no wheezes in the chest today and he was breathing room air comfortably despite the agitation.???6.?Idiopathic acute pancreatitis with uninfected necrosis - K85.01???Notes :He has a history of pancreatitis and was complaining of abdominal pain today. Pain was described as bilateral and below his umbilicus. Although this is unlikely pancreatitis he was referred to the emergency room because of the complexity of his acute illnesses.???7.?Mixed hyperlipidemia - E78.2???Notes :His lipids will be checked periodically.???8.?Obesity (BMI 30-39.9) - E66.9???Notes :He has lost 11 pounds since his last visit. His body mass index is 39. We have discussed his weight loss strategy and diet and nutrition. He will continue to lose weight at a rate of one half of a pound per week to a diet restricted in fat calories and sodium combined with regular physical activity.???9.?Former smoker - Z87.891???Notes :He has stopped smoking. We made a plan to prevent relapse in times of stress and illness.??? Plan: * Treatment: 2.?Chest pain?Imaging: Stress Test 3.?Others? Continue Albuterol Sulfate Nebulization Solution, (2.5 MG/3ML) 0.083%, 3 mL as needed, Inhalation, every 6 hrs.?? * Procedure Codes:?25615 MEASU RE BLOOD OXYGEN LEVEL * Preventive Medicine:? ??Counseling:?Care goal follow-up plan:?Counseling for abnormal BMI given?Yes ?Above Normal BMI Follow-up?Dietary management education, guidance, and counseling, Dietary needs education, Exercise promotion: strength training, Exercise promotion: stretching, Feeding regime, Giving encouragement to exercise, Lifestyle education regarding diet, Nutrition / feeding management, Nutrition therapy, Prescribed activity/exercise education, Prescribed diet education, Prescribed dietary intake, Special diet education, Weight monitoring , Intervention, Order not done: Medical or Other reason not done ?Smoking/Tobacco Use?Patient counseled on the dangers of tobacco use and urged to quit.?12/07/2024 * Follow Up:?2 Weeks, 1 week ( Reason: OV, Check-up and review of symptoms and medication effects) * Images: * Sign off status: Completed true * Provider:?Scottie Swenson MD Date:?11/18 Generated for Pockethernet harmeet/Catalina/eTindigosmitting on:?12/13/2024 08:43 AM EST History and Physical Notes * HPI (History of Present Illness) Category Sub-Category Detail Notes COVID-19 Screening Questions Have you had any new onset fever, chills, cough, congestion, sore throat, shortness of breath, muscle aches?: No Examination Category Sub-Category Detail Notes General Examination GENERAL APPEARANCE: pleasant , well nourished, well developed, in no acute distress,anxious, obese, man HEAD: atraumatic, normocep halic EYES: eomi, perrla, anicte bishop, conjugate EARS: normal NOSE: septum intact NECK/THYROID: no jugular venous di stention, no carotid bruit, thyroid normal HEART: no clicks, gallops, murmurs, or rubs, regular rhythm, S1, S2 normal, no s3, or vascular bruits LUNGS: clear to auscultatio n ABDOMEN: bowel sounds normal, no ascites, no organomegaly, no mass, centripital obesity NEUROLOGIC: alert and oriented, cranial nerves 2-12 grossly intact, deep tendon reflexes 2+ symmetrical, motor strength normal upper and lower extremities, sensory exam intact, anxious SKIN: no suspicious lesion s, anicteric PERIPHERAL PULSES: normal BREASTS: no masses palpable b ilaterally MUSCULOSKELETAL: extremities unremark able, no clubbing, cyanosis or edema LYMPH NODES: no enlarged lymph no toy,spleen normal RECTAL EXAM: not examined PSYCH: alert, oriented, moo d depressed, anxious appearing ORAL CAVITY: normal, unremarkable
--- OUTSIDE RECORDS SUMMARY | 2024-12-13 08:43 | XMS_ITS | Patient Health Record ---
Author Organization [facility] Address [address] [place] [address] Care Team Providers Care Marshmallow Maker Name Role Phone Scottie Swenson MD Primary Care Provider Unavailab Scottie Garcia Unavailable [phone] ALLERGIES Allergen (clinical drug ingredient) Drug/Non Drug Allergy documented on EMR Reaction Allergy Type Onset Date Status cats/dogs (uncoded) Unknown Allergy Active REASON FOR REFERRAL No Information MEDICATIONS Medication SIG (Take, Route, Frequency, Duration) Notes Start Date End Date Status Pepto-Bismol as needed Active SOCIAL HISTORY Tobacco Use: Social History Observation Description Date Details (start date - stop date) Current Smoker NA - NA Sex Assigned At : Social History Observation Description Sex Assigned At Unknown Tobacco Use/Smoking Question Answer Notes Patient is a current smoker How often do you smoke cigarettes? every day How many cigarettes a day do you smoke? 11-20 Alcohol Screen Question Answer Notes Did you have a drink contain ing alcohol in the past year? Yes How often did you have a dri nk containing alcohol in the past year? Never (0 point) How many drinks did you have on a typical day when you were drinking in the past year? 1 or 2 drinks (0 point) Points 0 Interpretation Negative PROBLEMS Problem Type ICD Code Onset Dates Problem Status W/U Status Risk SNOMED Code Notes Problem Rectal bleeding (K62.5) Active confirmed Rectal bleeding (87814251) Problem Melena (K92.1) Active confirmed Melena (7421729) Problem Rectal pain (K62.89) Active confirmed Rectal pain (30908505) Problem GERD (gastroesoph ageal reflux disease) (K21.9) Active confirmed Gastroesophagea l reflux disease (290127564) PLAN OF TREATMENT Future Test Test Name Order Date UPPER GI ENDOSCOPY 10/22/2020 COLONOSCOPY 10/22/2020 Insurance Providers Payer Name Payer Address Payer Phone Subscriber Number Group Number Insured Name Patient Relationship to Insured Coverage Start Date Coverage End Date [facility] [address] [place] [address] [phone] [id number] JEMIMA TIM Self - patient is the insured MEDICAL (GENERAL) HISTORY Medical History History ICD Code Asthma Denies [place],DM,CVA,renal disease Reported Diverticulitis in 03/2020--had a CT at [facility]-treated with Cipro/Flagyl Surgical History Surgery Date(Month/Year) Left elbow fracture 1993 Broken leg and ribs
--- OUTSIDE RECORDS SUMMARY | 2024-12-13 08:44 | XMS_ITS | Patient Health Record ---
Author Organization Scottie Swenson III, MD Address [address] [place] [address] Care Team Providers Care Usability Strategist Name Role Phone Scottie Swenson Primary Care Provider Allergies Allergen (clinical drug ingredient) Drug/Non Drug Allergy documented on EMR Reaction Allergy Type Onset Date Status prednisone predniSONE Unknown Drug Allergy Activ e Bee Sting Unknown Allergy Active Wellbutrin suicidal ideation Drug Allergy Active Results Component Value Reference Range Notes URINE DIP STICK Reviewed date:05/15/2024 03:28:34 PM Interpretation: Performing Lab: Notes/Report: SG 1.010 1.005 - 1.025 pH 6.0 5.0 - 9.0 REBA Negative Negative - NIT Negative Negative - PRO 15 Negative - Trace GLU Negative Negative - KET Negative Negative - UBG 0.2 0.1 - 1.8 BONG Negative 0.2 - 1.3 BLD Positive Negative - URINE DIP STICK Reviewed date:07/11/2024 01:55:52 PM Interpretation: Performing Lab: Notes/Report: SG 1.020 1.005 - 1.025 pH 6.0 5.0 - 9.0 REBA Negative Negative - NIT Negative Negative - PRO 15 Negative - Trace GLU Negative Negative - KET 5 Negative - UBG 0.2 0.1 - 1.8 BONG Negative 0.2 - 1.3 BLD ++ Negative - Urine Culture Reviewed date:10/10/2024 08:17:30 AM Interpretation: Performing Lab:[facility], [address] [place] [phone] Notes/Report: Urine Culture Report Result Urine Culture < 10,000 cfu/ml Complete Blood Count Auto Di ff Reviewed date:07/12/2024 06:54:31 AM Interpretation: Performing Lab:[facility], [address] [place] [phone] Notes/Report: White Blood Count 15.3 4.8-10.8 X10*3/uL Red Blood Count 5.12 4.60-5.80 X10*6/uL Hemoglobin 16.2 14.0-18.0 g/dl Hematocrit 46.8 42.0-52.0 % Mean Corpuscular Volume 91.4 80.0-98.0 fL Mean Corpuscular Hemoglobin 31.6 27.0-33.0 pg Mean Corpuscular HGB Conc 34.6 31.0-36.0 g/dl Red Cell Distribution Width 12.7 11.0-16.0 % Platelet Count 273 160-400 X10*3/uL Mean Platelet Volume 11.1 9.4-12.4 fL Neutrophils Percent Auto 55.8 45-73 % Imm Gran Pct Auto 0.5 0.0-0.4 % Lymphocytes Percent Auto 30.4 20-40 % Monocytes Percent Auto 6.5 2-11 % Eosinophils Percent Auto 5.9 0-4 % Basophils Percent Auto 0.9 0-2 % NRBC Pct Auto 0.0 0.0-0.2 /100WBC Neutrophils Absolute Auto 8.5 2.0-8.3 x10*3/uL Imm Gran Abs Auto 0.08 0.00-0.03 X10*3/uL Lymphocytes Absolute Auto 4.7 1.2-4.9 X10*3/uL Monocytes Absolute Auto 1.0 0.1-1.2 X10*3/uL Eosinophils Absolute Auto 0.9 0.0-0.4 X10*3/uL Basophils Absolute Auto 0.1 0.0-0.2 X10*3/uL NRBC Abs Auto 0.000 0.0-0.012 X10*3/uL Urinalysis and Microscopic Reviewed date:07/12/2024 06:54:31 AM Interpretation: Performing Lab:[facility], [address] [place] [phone] Notes/Report: Color Urine Yellow Appearance Urine Clear PH 6.5 5.0-9.0 Glucose Urine UA Negative Negative mg/dL Urine Blood Trace Negative Specific Nolan - Urine 1.020 1.005-1.025 Urine Protein Negative Neg-Trace mg/dL Urine Ketones Negative Negative mg/dL Nitrite Urine Negative Negative Leukocyte Esterase Urine Negative Negative RBC Urine 11-20 0-2 /HPF WBC Urine 0-5 0-5 /HPF Squamous Epithelial Cell Urine 0-2 0-2 /HPF Bacteria Urine None Seen None Seen Hyaline Casts Urine 0-2 0-2 /LPF Liver Panel Reviewed date:07/12/2024 06:54:31 AM Interpretation: Performing Lab:[facility], [address] [place] [phone] Notes/Report: Bilirubin Total 0.4 0.0-1.0 mg/dL Bilirubin Direct 0.2 0.0-0.5 mg/dL Aspartate Amino Transferase 19 5-37 U/L Alanine Aminotransferase 21 0-40 U/L Total Protein 8.0 6.5-8.0 g/dL Albumin Level 4.3 3.5-5.0 g/dL Alkaline Phosphatase 75 39-117 U/L Basic Metabolic Panel Reviewed date:07/12/2024 06:54:31 AM Interpretation: Performing Lab:[facility], [address] [place] [phone] Notes/Report: Sodium 144 135-145 mmol/L Potassium 4.4 3.3-5.1 mmol/L Chloride 105 96-108 mmol/L Carbon Dioxide 29 22-29 mmol/L Anion Gap 14 12-20 Blood Urea Nitrogen 13 9-16 mg/dL Creatinine 0.91 0.5-1.4 mg/dL Creatinine Clr Calc Pharmacy 136.9 eGFR (calculated from the MDRD study equation) and eCrCl (calculated from the Cockcroft-Gault equation) are based on different parameters and may not yield comparable results. If eCrCl result is absurd, please check patient's height/weight. Estimated Glomerular Filt Rate > 60 NOTE: For -Portuguese individuals, multiply the result by 1.210. Chronic Kidney Disease: Estimated GFR < 60 mL/min/1.73m2 Severe Kidney Disease: Estimated GFR < 15 mL/min/1.73m2 Glucose Random 90 60-115 mg/dL Calcium 9.8 8.4-10.2 mg/dL Magnesium Reviewed date:07/12/2024 06:54:31 AM Interpretation: Performing Lab:[facility], [address] [place] [phone] Notes/Report: Magnesium 2.1 1.6-2.6 mg/dL Lipase Reviewed date:07/12/2024 06:54:32 AM Interpretation: Performing Lab:[address] [address] Notes/Report: Lipase 17 8-78 U/L UA ClnCatch+Micro w/rflx Cul t Reviewed date:07/12/2024 06:54:32 AM Interpretation: Performing Lab:[facility], [address] [place] [phone] Notes/Report: [id number] Urine, Clean Catch Color Urine Yellow Appearance Urine Clear PH 6.5 5.0-9.0 Glucose Urine UA Negative Negative mg/dL Urine Blood Small (1+) Negative Specific Nolan - Urine 1.020 1.005-1.025 Urine Protein Negative Neg-Trace mg/dL Urine Ketones Negative Negative mg/dL Nitrite Urine Negative Negative Leukocyte Esterase Urine Negative Negative RBC Urine 6-10 0-2 /HPF WBC Urine 0-5 0-5 /HPF Squamous Epithelial Cell Urine 0-2 0-2 /HPF Bacteria Urine None Seen None Seen Hyaline Casts Urine 0-2 0-2 /LPF CT abdomen pelvis wo con Reviewed date:07/12/2024 06:54:32 AM Interpretation: Performing Lab: Notes/Report: [address] [address] [address] Scan Report Signed Patient: Arnav Lopez MR#: [id number] : 1975 Acct:[id number] Age/Sex: 48 / M ADM Date: 07/11/24 Loc: HO.ED Attending Dr: Ordering Physician: Dione Lopez Date of Service: 07/11/24 Procedure(s): CT abdomen pelvis wo IV con Accession Number(s): [id number] cc: Scottie Swenson MD; Dione Lopez EXAMINATION: CT ABDOMEN AND PELVIS WITHOUT CONTRAST CLINICAL INFORMATION: Left lower quadrant pain COMPARISON: 05/19/2023 TECHNIQUE: Multidetector volumetric imaging was performed from the superior aspect of the liver through the pubic symphysis. Sagittal and coronal reformatted images were obtained on the technologist's workstation. This CT examination was performed using dose optimization techniques as appropriate, variously including the following: *Automated exposure control *Adjustment of mA and/or kV according to patient size (this includes techniques or standardized protocols for targeted exams where dose is matched to indication/reason for exam; i.e. extremities or head) *Use of iterative reconstruction technique DLP: 829 mGy-cm FINDINGS: LUNG BASES: The visualized lung bases are unremarkable. LIVER, GALLBLADDER, AND BILIARY TREE: Changes of diffuse hepatic steatosis. No definite discrete lesion on this nonenhanced study. No gross biliary ductal dilatation. The gallbladder is unremarkable with no evidence of radiopaque gallstones, gallbladder wall thickening, or obvious pericholecystic inflammatory changes. PANCREAS: Unremarkable. SPLEEN: Unremarkable. ADRENAL GLANDS: Unremarkable. KIDNEYS AND URETERS: The kidneys are normal in size, shape, and attenuation. No hydronephrosis, hydroureter, or calculi seen. No perinephric stranding. BLADDER: Unremarkable. GASTROINTESTINAL TRACT: There are acute inflammatory changes within the distal sigmoid proximal sigmoid junction with bowel wall thickening and diverticula are noted. No free air or abscess. No obstruction grossly. No small bowel pathology. Normal appendix. ABDOMINAL WALL: No significant hernia is appreciated. LYMPH NODES: Normal. VASCULAR: Unremarkable. PELVIC VISCERA: Unremarkable. OSSEOUS STRUCTURES: Unremarkable. CT/CT abdomen pelvis wo IV con IMPRESSION: Acute uncomplicated diverticulitis as above. Fleischner guidelines were followed. Electronically signed by: Geoff Rincon MD 07/11/2024 05:18 PM EDT Dictated By: Geoff Rincon MD Signed By: <Electronically signed by Geoff Rincon MD in OV> 07/11/24 1718 DD/ 1439 TD/TT: 07/11/24 1603 Funeral Location Manager: [address] [address] [address] Scan Report Signed Patient: Arnav Lopez MR#: [id number] : 1975 Acct:[id number] Age/Sex: 48 / M ADM Date: 07/11/24 Loc: HO.ED Attending Dr: Ordering Physician: Dione Lopez Date of Service: 07/11/24 Procedure(s): CT abd omen pelvis wo IV con Accession Number(s): [id number] cc: Scottie Swenson MD; Dione Lopez EXAMINATION: CT ABDOMEN AND PELVI S WITHOUT CONTRAST CLINICAL INFORMATION: Left lower quadrant pain COMPARISON: 05/19/2023 TECHNIQUE: Multidetector volume tric imaging was performed from the superior aspect of the liver through the pubic symphysis. Sagittal and coronal reformatted images w ere obtained on the technologist's workstation. This CT examination was performed using dose optimization techniques as appropriate, various ly including the following: *Automated exposure control *Adjustment of mA an d/or kV according to patient size (this includes techniques or standardized protocols for targeted exams where dose is matched to indication/reason for exam; i.e. extremities or head) *Use of iterative reconstruction technique DLP: 829 mGy-cm FINDINGS: LUNG BASES: The visualized lung bases are unremarkable. LIVER, GALLBLADDER, AND BILIARY TREE: Changes of diffuse hepatic steatosis. No defini te discrete lesion on this nonenhanced study. No gross biliary ductal dilatation. The gallbladder is unremarkable with no evidence of radiopaque gallstones, gallbladder wall thickening, or obvious pericholecys tic inflammatory changes. PANCREAS: Unremarkable. SPLEEN: Unremarkable. ADRENAL GLANDS: Unremarkable. KIDNEYS AND URETERS: The kidneys are normal in size, shape, and attenuation. No hydronephrosis, hydroureter, or calculi seen. No perinephric stranding. BLADDER: Unremarkable. GASTROINTESTINAL TRA CT: There are acute inflammatory changes within the distal sigmoid proxi mal sigmoid junction with bowel wall thickening and diverticula are note d. No free air or abscess. No obstruction grossly. No small bowel pathology. Normal appendix. ABDOMINAL WALL: No significant hernia is appreciated. LYMPH NODES: Normal. VASCULAR: Unremarkable. PELVIC VISCERA: Unremarkable. OSSEOUS STRUCTURES: Unremarkable. C T/CT abdomen pelvis wo IV con IMPRESSION: Acute uncomplicated diverticulitis as above. Fleischner guideline s were followed. Electronically martha d by: Geoff Rincon MD 07/11/2024 05:18 PM EDT Dictated By: Kedar Rincon MD Signed By: <Electronically signed by Geoff Rincon MD in OV> 07/11/24 1718 DD/ 1439 TD/TT: 07/11/24 1603 Funeral Location Manager: EDGAR Complete Blood Count Auto Di ff Reviewed date:11/02/2024 03:20:52 PM Interpretation: Performing Lab:[facility], [address] [place] [phone] Notes/Report: White Blood Count 11.4 4.8-10.8 X10*3/uL Red Blood Count 4.95 4.60-5.80 X10*6/uL Hemoglobin 15.4 14.0-18.0 g/dl Hematocrit 44.1 42.0-52.0 % Mean Corpuscular Volume 89.1 80.0-98.0 fL Mean Corpuscular Hemoglobin 31.1 27.0-33.0 pg Mean Corpuscular HGB Conc 34.9 31.0-36.0 g/dl Red Cell Distribution Width 12.3 11.0-16.0 % Platelet Count 265 160-400 X10*3/uL Mean Platelet Volume 10.8 9.4-12.4 fL Neutrophils Percent Auto 46.5 45-73 % Imm Gran Pct Auto 0.4 0.0-0.4 % Lymphocytes Percent Auto 39.3 20-40 % Monocytes Percent Auto 6.0 2-11 % Eosinophils Percent Auto 6.8 0-4 % Basophils Percent Auto 1.0 0-2 % NRBC Pct Auto 0.0 0.0-0.2 /100WBC Neutrophils Absolute Auto 5.3 2.0-8.3 x10*3/uL Imm Gran Abs Auto 0.04 0.00-0.03 X10*3/uL Lymphocytes Absolute Auto 4.5 1.2-4.9 X10*3/uL Monocytes Absolute Auto 0.7 0.1-1.2 X10*3/uL Eosinophils Absolute Auto 0.8 0.0-0.4 X10*3/uL Basophils Absolute Auto 0.1 0.0-0.2 X10*3/uL NRBC Abs Auto 0.000 0.0-0.012 X10*3/uL White Blood Count 11.4 4.8-10.8 X10*3/uL Red Blood Count 4.95 4.60-5.80 X10*6/uL Hemoglobin 15.4 14.0-18.0 g/dl Hematocrit 44.1 42.0-52.0 % Mean Corpuscular Volume 89.1 80.0-98.0 fL Mean Corpuscular Hemoglobin 31.1 27.0-33.0 pg Mean Corpuscular HGB Conc 34.9 31.0-36.0 g/dl Red Cell Distribution Width 12.3 11.0-16.0 % Platelet Count 265 160-400 X10*3/uL Mean Platelet Volume 10.8 9.4-12.4 fL Neutrophils Percent Auto 46.5 45-73 % Imm Gran Pct Auto 0.4 0.0-0.4 % Lymphocytes Percent Auto 39.3 20-40 % Monocytes Percent Auto 6.0 2-11 % Eosinophils Percent Auto 6.8 0-4 % Basophils Percent Auto 1.0 0-2 % NRBC Pct Auto 0.0 0.0-0.2 /100WBC Neutrophils Absolute Auto 5.3 2.0-8.3 x10*3/uL Imm Gran Abs Auto 0.04 0.00-0.03 X10*3/uL Lymphocytes Absolute Auto 4.5 1.2-4.9 X10*3/uL Monocytes Absolute Auto 0.7 0.1-1.2 X10*3/uL Eosinophils Absolute Auto 0.8 0.0-0.4 X10*3/uL Basophils Absolute Auto 0.1 0.0-0.2 X10*3/uL NRBC Abs Auto 0.000 0.0-0.012 X10*3/uL CO RRECTED REPORT CO RRECTED REPORT Prothrombin Time INR Reviewed date:11/02/2024 03:20:52 PM Interpretation: Performing Lab:[facility] [address] Notes/Report: Prothrombin Time 13.2 10.9-12.4 SEC INTERNATIONAL NORM RATIO 1.1 0.9-1.1 INTERNATIONAL NORMALIZED RATIO (INR) REFERENCE RANGES Reference Range For patients not on anticoagulant therapy: 0.9 - 1.1 INR ranges for oral anticoagulant therapy: For prevention and treatment of venous thrombosis and pulmonary embolism: 2.0 - 3.0 For acute myocardial infarction with aspirin therapy: 2.0 - 3.0 For acute myocardial infarction without aspirin therapy: 3.0 - 4.0 For patients with mechanical prosthetic heart valves: 2.5 - 3.5 Liver Panel Reviewed date:11/02/2024 03:20:52 PM Interpretation: Performing Lab:[address] [address] Notes/Report: Bilirubin Total 0.6 0.0-1.0 mg/dL Bilirubin Direct 0.2 0.0-0.5 mg/dL Aspartate Amino Transferase 28 5-37 U/L Alanine Aminotransferase 36 0-40 U/L Total Protein 7.9 6.5-8.0 g/dL Albumin Level 4.1 3.5-5.0 g/dL Alkaline Phosphatase 93 39-117 U/L Basic Metabolic Panel Reviewed date:11/02/2024 03:20:52 PM Interpretation: Performing Lab:[address] [address] Notes/Report: Sodium 139 135-145 mmol/L Potassium 4.2 3.3-5.1 mmol/L Chloride 110 96-108 mmol/L Carbon Dioxide 22 22-29 mmol/L Anion Gap 11 12-20 Blood Urea Nitrogen 13 9-16 mg/dL Creatinine 0.82 0.5-1.4 mg/dL Creatinine Clr Calc Pharmacy 147.8 eGFR (calculated from the MDRD study equation) and eCrCl (calculated from the Cockcroft-Gault equation) are based on different parameters and may not yield comparable results. If eCrCl result is absurd, please check patient's height/weight. Estimated Glomerular Filt Rate > 60 Chronic Kidney Disease: Estimated GFR < 60 mL/min/1.73m2 Severe Kidney Disease: Estimated GFR < 15 mL/min/1.73m2 Glucose Random 88 60-115 mg/dL Calcium 8.9 8.4-10.2 mg/dL Magnesium Reviewed date:11/02/2024 03:20:52 PM Interpretation: Performing Lab:[address] [address] Notes/Report: Magnesium 2.1 1.6-2.6 mg/dL Troponin-I High Sensitivity Reviewed date:11/02/2024 03:20:52 PM Interpretation: Performing Lab:[address] [address] Notes/Report: Troponin-I High Sensitivity < 2.7 <3.5-35.0 ng/L The Montes high sensitivity Troponin-I results should be used in conjunction with other diagnostic information such as ECG, clinical observations and information, and patient symptoms to aid in the diagnosis of MS. C Reactive Protein Reviewed date:11/02/2024 03:20:52 PM Interpretation: Performing Lab:[address] [address] Notes/Report: C Reactive Protein 0.54 < or = 0.50 mg/dL B Type Natriuretic Peptide Reviewed date:11/02/2024 03:20:52 PM Interpretation: Performing Lab:[address] [address] Notes/Report: B Type Natriuretic Peptide < 10 <100 pg/mL For those patients who are being treated with Natrecor (nesiritide, recombinant BNP), BNP testing should be performed at least two hours post treatment in order to ensure that only endogenous levels of BNP are detected. Lipase Reviewed date:11/02/2024 03:20:52 PM Interpretation: Performing Lab:[address] [address] Notes/Report: Lipase 65 8-78 U/L Ethanol Reviewed date:11/02/2024 03:20:52 PM Interpretation: Performing Lab:[address] [address] Notes/Report: Ethanol < 10 Serum/plasma ethanol results are to be used for medical/treatment purposes only. SLIDE REVIEW Reviewed date:11/02/2024 03:20:52 PM Interpretation: Performing Lab:[address] [place] [address] Notes/Report: SLIDE REVIEW VERIFIED SARS-CoV2/FLU/RSV Reviewed date:11/02/2024 03:20:52 PM Interpretation: Performing Lab:[facility], [address] [place] [address] Notes/Report: Influenza A PCR NEGATIVE Negative Influenza B PCR NEGATIVE Negative Resp Syncy Virus RNA Qual PCR NEGATIVE Negative SARS COV2 PCR INHOUSE NEGATIVE Negative All test results must be correlated with clinical findings. Negative results do not preclude SARS-CoV2, influenza A virus, influenza B virus and/or RSV infection and should not be used as the sole basis for treatment or other patient management decisions. Negative results must be combined with clinical observations, patient history, and epidemiological information. This test has not been evaluated for monitoring treatment of infection. This test has been authorized by the FDA under an Emergency Use Authorization (EUA) for use by authorized laboratories. Testing performed on the [employer] GeneXpert utilizing real-time RT-PCR. All SARS CoV2 and positive influenza A/B results are reported to [facility]. XR chest 2V Reviewed date:11/02/2024 03:20:52 PM Interpretation: Performing Lab: Notes/Report: [address] [place] [address] XRay Report Signed Patient: Arnav Lopez MR#: [id number] : 1975 Acct:[id number] Age/Sex: 48 / M ADM Date: 11/02/24 Loc: .ED Attending Dr: Ordering Physician: Doc Kowalski MD Date of Service: 11/02/24 Procedure(s): XR chest 2V Accession Number(s): [id number] cc: Scottie Swenson MD; Doc Kowalski MD EXAMINATION: XR CHEST CLINICAL INFORMATION: dyspnea on exertion COMPARISON: None available. TECHNIQUE: 2 views of the chest were obtained. FINDINGS: The lungs are emphysematous but clear acute process. Heart size and pulmonary vascularity is normal. There is mild dextroscoliosis of dorsal spine. No aggressive lytic or sclerotic process seen. XR/XR chest 2V IMPRESSION: Diffuse emphysematous lungs without acute process. Electronically signed by: Steven Bolaños MD 11/02/2024 11:02 AM EST RP Dictated By: Steven Bolaños MD Signed By: <Electronically signed by Steven Bolaños MD in OV> 11/02/24 1102 DD/ 105 TD/TT: 11/02/24 105 Funeral Location Manager: [address] [address] XRay Report Signed Patient: Arnav Lopez MR#: [id number] : 1975 Acct:[id number] Age/Sex: 48 / M ADM Date: 11/02/24 Loc: HO.ED Attending Dr: Ordering Physician: Doc Kowalski MD Date of Service: 11/02/24 Procedure(s): XR matt st 2V Accession Number(s): [id number] cc: Scottie Swenson MD; Doc Kowalski MD EXAMINATION: XR CHEST CLINICAL INFORMATION: dyspnea on exertion COMPARISON: None available. TECHNIQUE: 2 views of the chest were obtained. FINDINGS: The lungs are emphysematous but clear acute process. Heart size and pulmonary vascularit y is normal. There is mild dextroscoliosis of dorsal spine. No aggressive lytic or sclerotic process seen. X R/XR chest 2V IMPRESSION: Diffuse emphysematou s lungs without acute process. Electronically martha d by: Steven Bolaños MD 11/02/2024 11:02 AM EST RP Dictated By: Mr clint Bolaños MD Signed By: <Electronically signed by Steven Bolaños MD in OV> 11/02/24 1102 DD/ 1055 TD/TT: 11/02/24 105 Funeral Location Manager: MONA Magnesium Reviewed date:11/02/2024 03:20:52 PM Interpretation: Performing Lab:[facility], [address] [place] [address] Notes/Report: Magnesium 2.1 1.6-2.6 mg/dL Reason For Referral No Information Medications Medication SIG (Take, Route, Frequency, Duration) [...] Additional Findings: Tobacco Non-User Ex-cigaret te smoker Alcohol Screen Question Answer Notes Did you have a drink contain ing alcohol in the past year? Yes How often did you have a dri nk containing alcohol in the past year? Monthly or less (1 point) How many drinks did you have on a typical day when you were drinking in the past year? 1 or 2 drinks (0 point) How often did you have 6 or more drinks on one occasion in the past year? Never (0 point) Points 1 Interpretation Negative Problems Problem Type SNOMED Code ICD Code Onset Dates Problem Status W/U Status Risk Notes Problem 943058677 Anxiety disorder , unspecified (F41.9) Active confirmed he feels very [...] until onset of relief with this medication. Problem 5455140 Former smoker (Z87.891) Active confirmed He has stopped smoking. We made a plan to prevent relapse in times of stress and illness. Problem 458782447 Mixed hyperlipidemia (E78.2) Active confirmed His lipids will be checked periodically. Problem 252436191 Obesity (BMI 30-39.9) (E66.9) Active confirmed He has lost 11 pounds since his last visit. His body mass index is 39. We have discussed his weight loss strategy and diet and nutrition. He will continue to lose weight at a rate of one half of a pound per week to a diet restricted in fat calories and sodium combined with regular physical activity. Problem Carpal tunnel syndrome (21377567) Carpal tunnel syndrome (G56.00) Active confirmed He thinks he may have carpal tunnel syndrome. He was referred for nerve conduction studies. Problem 93930604 PTSD (post-traumatic stress disorder) (F43.10) Active confirmed He is emotionally stable during today's examination and was cooperative. 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 Pain was described as bilateral and below his umbilicus. Although this is unlikely pancreatitis he was referred to the emergency room because of the complexity of his acute illnesses. Problem 040609786 Acute diverticulitis (K57.92) Active confirmed He appears to be moderately ill. He was sent from my office across the street to the emergency room for an urgent CT scan, blood work and possible surgical evaluation. Problem 127795576 History of depression (Z86.59) Active confirmed This depression was absent today. The stable and is capable of all activities of daily life without impairment. Problem 304692200 Benign prostatic hyperplasia, unspecified whether lower urinary tract symptoms present (N40.0) Active confirmed We discussed several modification as April so he could make to reduce nocturia. Problem 391128379 History of asthm a (Z87.09) Active confirmed there were no wheezes in the chest today and he was breathing room air comfortably despite the agitation. Vital Signs Heart Rate 61 /min 12/07/2024 Temperature 97.5 degrees Fahrenheit 11/09/2024 Oximetry 97.2 % 12/07/2024 Blood pressure diastolic 84 mm Hg 12/07/2024 Height 70 in 12/07/2024 Blood pressure systolic 142 mm Hg 12/07/2024 Weight 265 lbs 12/07/2024 BMI 38.02 kg/m2 12/07/2024 Encounters Encounter Location Date Provider Diagnosis Scottie Swenson III, MD [address] [place] [address] [place] [address] 05/15/2024 Scottie Swenson History of depressio n Z86.59 ; Mixed hyperlipidemia E78.2 ; Benign prostatic hyperplasia, unspecified whether lower urinary tract symptoms present N40.0 ; History of asthma Z87.09 ; PTSD (post-traumatic stress disorder) F43.10 ; Idiopathic acute pancreatitis with uninfected necrosis K85.01 ; Former smoker Z87.891 ; Carpal tunnel syndrome G56.00 and Obesity (BMI 30-39.9) E66.9 Scottie Swenson III, MD [address] [place] [address] [place] [phone] 07/11/2024 Scottie Swenson History of depressio n Z86.59 ; Acute diverticulitis K57.92 ; Mixed hyperlipidemia E78.2 ; History of asthma Z87.09 ; Benign prostatic hyperplasia, unspecified whether lower urinary tract symptoms present N40.0 ; Obesity (BMI 30-39.9) E66.9 and Former smoker Z87.891 Scottie Swenson III, MD [address] [place] [address] [place] [phone] 11/02/2024 Scottie Swenson History of asthma Z8 7.09 ; History of depression Z86.59 ; Mixed hyperlipidemia E78.2 ; Idiopathic acute pancreatitis with uninfected necrosis K85.01 ; Former smoker Z87.891 ; Benign prostatic hyperplasia, unspecified whether lower urinary tract symptoms present N40.0 and Obesity (BMI 30-39.9) E66.9 Scottie Swenson III, MD [address] [place] [address] [place] [id number] 11/09/2024 Scottie Swenson History of depressio n Z86.59 ; Active asthma J45.909 ; Mixed hyperlipidemia E78.2 ; PTSD (post-traumatic stress disorder) F43.10 ; Idiopathic acute pancreatitis with uninfected necrosis K85.01 ; Former smoker Z87.891 ; Benign prostatic hyperplasia, unspecified whether lower urinary tract symptoms present N40.0 and Obesity (BMI 30-39.9) E66.9 Scottie Swenson III, MD [address] [place] [address] [place] [id number] 12/07/2024 Scottie Swenson History of depressio n Z86.59 ; Anxiety disorder, unspecified F41.9 ; Chest pain R07.9 ; Depression, unspecified F32.A ; History of asthma Z87.09 ; Idiopathic acute pancreatitis with uninfected necrosis K85.01 ; Mixed hyperlipidemia E78.2 ; Obesity (BMI 30-39.9) E66.9 and Former smoker Z87.891 Scottie Swenson III, MD [address] [place] [address] [address] [place] [id number] 07/11/2024 Scottie Swenson III, MD [address] [place] [address] [place] [id number] 11/01/2024 Scottie Swenson III, MD [address] [place] [address] [place] [id number] 11/10/2024 Scottie Swenson III, MD [address] [place] [address] [place] [id number] 12/10/2024 Scottie Swenson Assessments Encounter Date Diagnosis (ICD Code) Assessment Notes Treat ment Notes Treatment Clinical Notes 05/15/2024 Mixed hyperlipidemia (ICD-10 - E78.2) 05/15/2024 History of depressio n (ICD-10 - Z86.59) This depression was absent today. The stable and is capable of all activities of daily life without impairment. 07/11/2024 Acute diverticulitis (ICD-10 - K57.92) He appears to be moderately ill. He was sent from my office across the street to the emergency room for an urgent CT scan, blood work and possible surgical evaluation. 07/11/2024 History of depressio n (ICD-10 - Z86.59) This depression was absent today. The stable and is capable of all activities of daily life without impairment. 11/02/2024 History of depressio n (ICD-10 - Z86.59) This depression was absent today. The stable and is capable of all activities of daily life without impairment. 11/02/2024 History of asthma (ICD-10 - Z87.09) There was significant wheezing and prolongation of expiration today. He is moderately symptomatic. He was referrred to the emergency room for acute treatment. 11/09/2024 History of depressio n (ICD-10 - Z86.59) This depression was absent today. The stable and is capable of all activities of daily life without impairment. 11/09/2024 Active asthma (ICD-1 0 - J45.909) His oxygen saturation is 96% and he is comfortable at rest. There are mild diffuse wheezes in his lung wallace. I encouraged him to continue the prednisone if he possibly could. I have refilled albuterol vials for his home nebulizer. He has an given a repeat office visit in the near future. He will continue on his current inhalers. 12/07/2024 Anxiety disorder, unspecified (ICD-10 - F41.9) [...] onset of relief with this medication. 12/07/2024 History of depressio n (ICD-10 - Z86.59) This depression was absent today. The stable and is capable of all activities of daily life without impairment. 05/15/2024 Benign prostatic hyperplasia, unspecified whether lower urinary tract symptoms present (ICD-10 - N40.0) 07/11/2024 Mixed hyperlipidemia (ICD-10 - E78.2) His lipids will be checked periodically. 11/02/2024 Mixed hyperlipidemia (ICD-10 - E78.2) His lipids will be checked periodically. 11/09/2024 Mixed hyperlipidemia (ICD-10 - E78.2) His lipids will be checked periodically. 12/07/2024 Chest pain (ICD-10 - R07.9) pain is a sharp stabbing pain in the upper right chest which does not sound anginal. 05/15/2024 History of asthma (ICD-10 - Z87.09) He has had very little asthma lately and hardly uses his inhaler. 07/11/2024 History of asthma (ICD-10 - Z87.09) He has had very little asthma lately and hardly uses his inhaler. 11/02/2024 Idiopathic acute pancreatitis with uninfected necrosis (ICD-10 - K85.01) He has a history of pancreatitis and was complaining of abdominal pain today. Pain was described as bilateral and below his umbilicus. Although this is unlikely pancreatitis he was referred to the emergency room because of the complexity of his acute illnesses. 11/09/2024 PTSD (post-traumatic stress disorder) (ICD-10 - F43.10) He is emotionally stable during today's examination and was cooperative. 12/07/2024 Depression, unspecified (ICD-10 - F32.A) he has a history of depression which seems about the same but his anxiety has appeared and is severe. 05/15/2024 PTSD (post-traumatic stress disorder) (ICD-10 - F43.10) He is emotionally stable during today's examination and was cooperative. 07/11/2024 Benign prostatic hyperplasia, unspecified whether lower urinary tract symptoms present (ICD-10 - N40.0) 11/02/2024 Former smoker (ICD-1 0 - Z87.891) He has stopped smoking. We made a plan to prevent relapse in times of stress and illness. 11/09/2024 Idiopathic acute pancreatitis with uninfected necrosis (ICD-10 - K85.01) He has a history of pancreatitis and was complaining of abdominal pain today. Pain was described as bilateral and below his umbilicus. Although this is unlikely pancreatitis he was referred to the emergency room because of the complexity of his acute illnesses. 12/07/2024 History of asthma (ICD-10 - Z87.09) there were no wheezes in the chest today and he was breathing room air comfortably despite the agitation. 05/15/2024 Idiopathic acute pancreatitis with uninfected necrosis (ICD-10 - K85.01) The most recent lipase and amylase were normal. 07/11/2024 Obesity (BMI 30-39.9 ) (ICD-10 - E66.9) [...] and sodium combined with regular physical activity. 11/02/2024 Benign prostatic hyperplasia, unspecified whether lower urinary tract symptoms present (ICD-10 - N40.0) We discussed several modification as April so he could make to reduce nocturia. 11/09/2024 Former smoker (ICD-1 0 - Z87.891) He has stopped smoking. We made a plan to prevent relapse in times of stress and illness. 12/07/2024 Idiopathic acute pancreatitis with uninfected necrosis (ICD-10 - K85.01) He has a history of pancreatitis and was complaining of abdominal pain today. Pain was described as bilateral and below his umbilicus. Although this is unlikely pancreatitis he was referred to the emergency room because of the complexity of his acute illnesses. 05/15/2024 Former smoker (ICD-1 0 - Z87.891) He has stopped smoking. We made a plan to prevent relapse in times of stress and illness. 07/11/2024 Former smoker (ICD-1 0 - Z87.891) He has stopped smoking. We made a plan to prevent relapse in times of stress and illness. 11/02/2024 Obesity (BMI 30-39.9 ) (ICD-10 - E66.9) [...] and sodium combined with regular physical activity. 11/09/2024 Benign prostatic hyperplasia, unspecified whether lower urinary tract symptoms present (ICD-10 - N40.0) We discussed several modification as April so he could make to reduce nocturia. 12/07/2024 Mixed hyperlipidemia (ICD-10 - E78.2) His lipids will be checked periodically. 05/15/2024 Carpal tunnel syndrome (ICD-10 - G56.00) He thinks he may have carpal tunnel syndrome. He was referred for nerve conduction studies. 11/09/2024 Obesity (BMI 30-39.9 ) (ICD-10 - E66.9) [...] sodium combined with regular physical activity. 12/07/2024 Obesity (BMI 30-39.9 ) (ICD-10 - [...] and sodium combined with regular physical activity. 05/15/2024 Obesity (BMI 30-39.9 ) (ICD-10 - E66.9) [...] of stress and illness. Plan Of Treatment Pending Test Test Name Order Date PREALBUMIN 11/14/2020 PROFILE, FASTING (COMPREHENSIVE METABOLI C) 05/10/2023 PROFILE, RANDOM (COMPREHENSIVE METABOLIC ) 09/15/2022 PROFILE, RANDOM (COMPREHENSIVE METABOLIC ) 05/15/2024 AMYLASE 09/15/2022 LIPASE 09/15/2022 LIPID PANEL 05/10/2023 LIPID PANEL 05/15/2024 FREE T4 (FT4) 05/10/2023 FREE T4 (FT4) 11/14/2020 TSH (THYROID STIMULATING HORMONE) 2022 TSH (THYROID STIMULATING HORMONE) 2020 PSA, TOTAL 05/15/2024 PSA, TOTAL 05/10/2023 CBC w DIFF 09/15/2022 CBC w DIFF 05/15/2024 CBC w DIFF 05/10/2023 SED RATE (ESR) 11/14/2020 HIV AG/AB 07/18/2020 XR CHEST 2 VIEW PA & LAT 11/14/2020 XR LUMBAR SPINE 4+ VIEWS 11/14/2020 US ABD 09/15/2022 Stress Test 12/07/2024 Urinalysis 07/11/2024 Hemoglobin A1c 11/14/2020 Next Appt Details Provider Name:Scottie Swenson, 12/21/2024 09:15:00 AM, [address] [place] [address] [place], [place], [phone], Provider Name:Scottie Swenson, 05/22/2025 03:00:00 PM, [address] [facility] [place], [place], [phone], Insurance Providers Payer Name Payer Address Payer Phone Subscriber Number Group Number Insured Name Patient Relationship to Insured Coverage Start Date Coverage End Date MEDICAID [address] [place]IGGINS [id number] Arnav Delcid Self - patient is the insured Medical (General) History Medical History History ICD Code mixed hyperlipidemia asthma depression PTSD obesity tobacco dependence low back pain Surgical History Surgery Date(Month/Year) his surgery age 18 Left lateral Sphincterotomy 2020-11-07 Right hand carpal tunnel 01/2024 No history Carpal tunnel surgery Hospitalization History Reason Date(Month/Year) No history colonoscopy 2020 Acute pancreatitis 08/2022
== END ==
LOC: HO.CARD 08:19
PROVIDERS: PCP Internal Medicine Medical Oncology; Visit Provider Internal Medicine Medical Oncology
DX: R07.9 Chest pain, unspecified (principal)
CPT/HCPCS: 93017

== ENCOUNTER → 2024-12-13 08:23 | Outpatient (BNV) | payer MEDICAID, SELFPAY | PROVIDERS: PCP Internal Medicine Medical Oncology | DX: R06.02 Shortness of breath (principal) | CPT/HCPCS: 93016; 93018 ==